=== PATIENT | female | born 1935 | race Caucasian/White ===

== ENCOUNTER 2017-03-06 15:46 | Inpatient (IN) | payer MEDICARE, OTHER ==
--- NOTE | 2017-03-06 16:24 | ER Document Report ---
ED Fever - General Chief Complaint: Fever Stated Complaint: WEAKNESS,FEVER Time Seen by Provider: 03/06/17 16:24 Mode of Arrival: Stretcher Information source: Patient TRAVEL OUTSIDE OF THE [place] IN LAST 30 DAYS: No - HPI Patient complains to provider of: Fever, lower extremity redness Onset: Yesterday Onset/Duration: Gradual Quality of pain: Achy Severity: Mild Pain Level: 1 Associated symptoms: Body/muscle aches, Fever, Nausea, Vomiting Similar symptoms previously: No Recently seen / treated by doctor: No Notes: Patient is an 81-year-old female who presents to the emergency room complaining of fever that started yesterday evening, she also had 3 episodes of vomiting throughout the night, she has pain and swelling with oozing of the skin to her bilateral lower extremities, she does report that her cat scratched her recently , she denies any cough, cold or congestion, no dysuria or hematuria, her daughter was sick with vomiting approximately 2 weeks ago, she denies any injury or pain at time of evaluation - Related Data Allergies/Adverse Reactions: niacin [Niacin] Allergy (Verified 05/27/13 23:09) rash Penicillins Allergy (Verified 05/27/13 23:09) rash Home Medications: Current Home Medications Hum Insulin NPH/Reg Insulin Hm [Novolin 70-30 100 Unit/ml Vial] 15 unit SUBCUT BID 03/06/17 [History] Omeprazole 20 mg PO DAILY 03/06/17 [History] Past Medical History - General Information source: Patient - Social History Smoking Status: Unknown if Ever Smoked Family History: CAD, CVA, DM, Hypertension, Malignancy - Past Medical History Cardiac Medical History: Reports: Hx Atrial Fibrillation, Hx Congestive Heart Failure - chronic diastolic, Hx Hypercholesterolemia, Hx Hypertension Pulmonary Medical History: Reports: Hx COPD Endocrine Medical History: Reports: Hx Diabetes Mellitus Type 2 GI Medical History: Reports: Hx Gastroesophageal Reflux Disease Musculoskeltal Medical History: Reports Hx Musculoskeletal Trauma - 2012 fracture L humerus Psychiatric Medical History: Reports: Hx Anxiety Traumatic Medical History: Reports: Hx Fractures Past Surgical History: Reports: Hx Breast Surgery - Immunizations Immunizations up to date: Yes Hx Diphtheria, Pertussis, Tetanus Vaccination: No Hx Pneumococcal Vaccination: 05/29/13 Review of Systems - Review of Systems Constitutional: Chills, Fever EENT: No symptoms reported Cardiovascular: No symptoms reported Respiratory: No symptoms reported Gastrointestinal: See HPI Genitourinary: No symptoms reported Female Genitourinary: No symptoms reported Musculoskeletal: No symptoms reported Skin: See HPI Hematologic/Lymphatic: No symptoms reported Neurological/Psychological: No symptoms reported -: Yes All other systems reviewed and negative Physical Exam - Vital signs Vitals: Temp Pulse Resp Pulse Ox 99.7 F 95 33 H 92 03/06/17 16:16 03/06/17 16:16 03/06/17 16:16 03/06/17 16:16 Interpretation: Hypotensive, Tachycardic, Febrile - General General appearance: Appears well, Alert - HEENT Head: Normocephalic, Atraumatic Eyes: Normal Pupils: PERRL - Respiratory Respiratory status: No respiratory distress Chest status: Nontender Breath sounds: Normal Chest palpation: Normal - Cardiovascular Rhythm: Regular Heart sounds: Normal auscultation Murmur: No - Abdominal Inspection: Normal Distension: Distended Bowel sounds: Normal Tenderness: Nontender Organomegaly: No organomegaly - Back Back: Normal, Nontender - Extremities General upper extremity: Normal inspection, Nontender, Normal color, Normal ROM , Normal temperature General lower extremity: Normal ROM, Normal temperature. No: Flower's sign Notes: Bilateral lower extremities with erythema, mild swelling, small amount of oozing serous fluid - Neurological Neuro grossly intact: Yes Cognition: Normal Orientation: AAOx4 Patricia Coma Scale Eye Opening: Spontaneous [place] Coma Scale Verbal: Oriented [place] Coma Scale Motor: Obeys Commands [place] Coma Scale Total: 15 Speech: Normal Motor strength normal: LUE, RUE, LLE, RLE Sensory: Normal - Psychological Associated symptoms: Normal affect, Normal mood - Skin Skin Temperature: Warm Skin Moisture: Dry Skin Color: Normal Course - Re-evaluation Re-evalutation: 03/06/17 20:55 Patient with marked leukocytosis, also slightly hypotensive and tachycardic with fever on arrival, therefore she meets SIRS criteria, and was discussed with Dr. Giron who agrees to admit for further evaluation and treatment - Vital Signs Vital signs: Temp Pulse Resp BP Pulse Ox 98.2 F 95 24 H 113/69 95 03/06/17 20:38 03/06/17 16:16 03/06/17 20:01 03/06/17 20:01 03/06/17 20:01 - Laboratory Result Diagrams: 03/06/17 16:55 03/06/17 16:55 Laboratory results interpreted by me: 03/06/17 03/06/17 03/06/17 16:32 16:55 16:55 WBC 23.0 H RDW 16.2 H Seg Neuts % (Manual) 85 H Band Neutrophils % 8 H Lymphocytes % (Manual) 2 L Abs Neuts (Manual) 21.4 H PT 20.4 H VBG pH Sodium Potassium BUN Est GFR (Non-Af Amer) Glucose POC Glucose 149 H Calcium Direct Bilirubin Albumin Urine Blood Ur Leukocyte Esterase 03/06/17 03/06/17 03/06/17 16:55 16:55 17:10 WBC RDW Seg Neuts % (Manual) Band Neutrophils % Lymphocytes % (Manual) Abs Neuts (Manual) PT VBG pH 7.45 H Sodium 136.5 L Potassium 3.4 L BUN 21 H Est GFR (Non-Af Amer) 51 L Glucose 172 H POC Glucose Calcium 8.2 L Direct Bilirubin 0.6 H Albumin 3.1 L Urine Blood SMALL H Ur Leukocyte Esterase SMALL H - Diagnostic Test Radiology reviewed: Image reviewed, Reports reviewed - EKG Interpretation by Me Rhythm: A.Fib When compared to previous EKG there are: No significant change - Transfer of Care Care transferred to following provider: Dr Giron Critical Care Note - Critical Care Note Total time excluding time spent on procedures (mins): 30 Comments: Patient with tachycardia, fever, hypotensive on arrival, meets SIRS criteria, requiring IV antibiotics and admission Discharge - Discharge Clinical Impression: Bilateral lower leg cellulitis, Systemic inflammatory response syndrome Condition: Fair Disposition: ADMITTED INPATIENT Admitting Provider: [facility] Admitted: Telemetry
[2017-03-06 17:04] LABS: VENOUS BLOOD BASE EXCESS 1.2 mmol/L; VENOUS BLOOD PCO2 36.9 mmHg (35-63); VENOUS BLOOD PH 7.45 (7.30-7.42)
[2017-03-06] MEDS ORDERED: NORMAL SALINE 1000 ML 500 ML IV PRN (17:04)
[2017-03-06 17:05] LABS: HEMATOCRIT 42.8 % (36.0-47.0); HEMOGLOBIN 13.8 g/dL (12.0-15.5); HGB HCT DIFFERENCE -1.4; MEAN CORPUSCULAR HEMOGLOBIN 27.3 pg (27.0-33.4); MEAN CORPUSCULAR HGB CONC 32.2 g/dL (32.0-36.0); MEAN CORPUSCULAR VOLUME 85 fl (80-97); RED BLOOD COUNT 5.04 10^6/uL (3.72-5.28); RED CELL DISTRIBUTION WIDTH 16.2 % (11.5-14.0)
[2017-03-06 17:12] LABS: PROTHROMBIN TIME 20.4 SEC (11.4-15.4)
[2017-03-06 17:25] LABS: ALANINE AMINOTRANSFERASE 37 U/L (9-52); ALBUMIN 3.1 g/dL (3.5-5.0); ALKALINE PHOSPHATASE 105 U/L (38-126); ANION GAP 15 (5-19); ASPARTATE AMINO TRANSFERASE 33 U/L (14-36); BILIRUBIN,DIRECT 0.6 mg/dL (0.0-0.4); BILIRUBIN,TOTAL 1.2 mg/dL (0.2-1.3); BLOOD UREA NITROGEN 21 mg/dL (7-20); CALCIUM 8.2 mg/dL (8.4-10.2); CARBON DIOXIDE 23 mmol/L (22-30); CHLORIDE 99 mmol/L (98-107); CREATININE RESULT 1.03 mg/dL (0.52-1.25); GLUCOSE 172 mg/dL (75-110); POTASSIUM 3.4 mmol/L (3.6-5.0); SODIUM 136.5 mmol/L (137-145); TOTAL PROTEIN 6.4 g/dL (6.3-8.2)
[2017-03-06 17:53] LABS: BAND NEUTROPHILS % (MANUAL) 8 % (3-5); BASOPHILS % (MANUAL) 0 % (0-2); EOSINOPHILS % (MANUAL) 0 % (0-6); LYMPHOCYTES % (MANUAL) 2 % (13-45); TOTAL CELLS COUNTED 100
[2017-03-06 17:54] LABS: ANISOCYTOSIS 1+; POIKILOCYTOSIS SLIGHT; TOXIC GRANULATION SLIGHT
[2017-03-06 19:05] LABS: APPEARANCE,URINE SLIGHTLY-CLOUDY; BILIRUBIN,URINE NEGATIVE (NEGATIVE); GLUCOSE, URINE NEGATIVE (NEGATIVE); KETONES,URINE NEGATIVE (NEGATIVE); LEUKOCYTE ESTERASE,URINE SMALL (NEGATIVE); NITRITE,URINE NEGATIVE (NEGATIVE); PROTEIN,URINE NEGATIVE (NEGATIVE); URINE SPECIFIC GRAVITY 1.018; UROBILINOGEN,URINE NEGATIVE mg/dL (<2.0)
--- NOTE | 2017-03-06 19:10 | RADIOLOGY REPORT (SQ) ---
EXAM DESCRIPTION: CHEST PA/LAT COMPLETED DATE/TIME: 03/06/2017 6:52 pm REASON FOR STUDY: cough COMPARISON: None. 04/02/2015 NUMBER OF VIEWS: Two view. TECHNIQUE: Frontal and lateral radiographic views of the chest acquired. LIMITATIONS: None. FINDINGS: LUNGS AND PLEURA: No opacities, masses or pneumothorax. No pleural effusion. Attenuated bl ood vessels and flattened talha-diaphragms. MEDIASTINUM AND HILAR STRUCTURES: No masses. No contour abnormalities. HEART AND VASCULAR STRUCTURES: Stable mild cardiomegaly. Central vasculature appears normal. BONES: No acute findings. HARDWARE: None in the chest. OTHER: No other significant finding. IMPRESSION: COPD. NO ACUTE RADIOGRAPHIC FINDING IN THE CHEST. TECHNICAL DOCUMENTATION: JOB ID: [id number] [facility]- All Rights Reserved
[2017-03-06] MEDS ORDERED: AZITHROMYCIN INJ 500 MG VIAL IV ONE (19:29)
[2017-03-06] MEDS ORDERED: VANCOMYCIN HCL INJ 1000 MG VIAL IV ONE (19:34)
[2017-03-06] MEDS ORDERED: FUROSEMIDE 40 MG TABLET PO PRN (19:54)
[2017-03-06] MEDS ORDERED: VANCOMYCIN HCL 0 MG in DEXTROSE 5%-WATER 250 ML IV NR (20:00)
[2017-03-06] MEDS ORDERED: METOPROLOL SUCCINATE 50 MG TAB.SR.24H PO ONE (20:30)
[2017-03-06] MEDS ORDERED: FLUTICASONE/SALMETEROL DISKUS 250-50 MCG/DOSE IH ONE (21:44)
[2017-03-06] MEDS: DABIGATRAN ETEXILATE 150 MG CAPSULE PO SCH (23:23)
[2017-03-06] MEDS: FLUTICASONE/SALMETEROL DISKUS 250-50 MCG/DOSE IH SCH (23:23)
[2017-03-06] MEDS: ACETAMINOPHEN 325 MG TABLET PO PRN (23:23)
[2017-03-06] MEDS: ONDANSETRON HCL INJ/PF 4 MG/2 ML SDV IV PRN (23:23)
[2017-03-07] MEDS: ACETAMINOPHEN 325 MG TABLET PO PRN ×4 (05:29→21:03)
--- NOTE | 2017-03-07 06:24 | PDOC H&P ---
History of Present Illness Admission Date/PCP: 03/06/17 19:48 MAGDALENA MCKEON MD Patient complains of: History of Present Illness: ZENAIDA MALHOTRA is a 81 year old female with a 2w history of cat scratches and bilateral leg pain, redness, swelling. 2d vomiting & fever 104. Past Medical History Cardiac Medical History: Reports: Atrial Fibrillation, Congestive Heart Failure - chronic diastolic, Hyperlipidema, Hypertension, Other - mr pulmonary hypertension Pulmonary Medical History: Reports: Chronic Obstructive Pulmonary Disease (COPD) Endocrine Medical History: Reports: Diabetes Mellitus Type 2 Renal/ Medical History: Reports: None Malignancy Medical History: Reports: None GI Medical History: Reports: Gastroesophageal Reflux Disease Musculoskeltal Medical History: Reports: Arthritis Skin Medical History: Reports: Psoriasis Psychiatric Medical History: Reports: Depression Traumatic Medical History: Reports: Other - fracture L humerus Hematology: Reports: Anemia - iron & b12 Infectious Medical History: Reports: None Past Surgical History Past Surgical History: Reports: Other - cataracts & L breast biopsy & cryo Social History Information Source: Dr. Greenberg Lives with: Family Smoking Status: Former Smoker Last Time Smoked: 1997 Frequency of Alcohol Use: None Hx Recreational Drug Use: No Hx Prescription Drug Abuse: No - Advance Directive Resuscitation Status: Full Code Family History Family History: CAD, CVA, DM, Hypertension, Malignancy Parental Family History Reviewed: Yes Children Family History Reviewed: Yes Sibling(s) Family History Reviewed.: Yes Medication/Allergy Home Medications: Atorvastatin Calcium 40 mg PO DAILY 04/03/15 Dabigatran Etexilate Mesylate [Pradaxa] 150 mg PO BID 04/03/15 Diltiazem HCl [Cartia Xt] 240 mg PO DAILY 04/03/15 Fluticasone/Salmeterol [Advair 250-50 Diskus 14 Dose/Diskus] 1 inh IH Q12H 04/03 Furosemide [Lasix 40 mg Tablet] 40 mg PO BID PRN 04/03/15 Tiotropium [place] [Spiriva Handihaler 18 mcg/dose (30 Dose)] 1 cap IH DAILY 10/18 Cyanocobalamin (Vitamin B-12) [Vitamin B-12 1000 mcg Tablet] 1,000 mcg PO DAILY #100 tablet 04/08/15 Ferrous Sulfate [Feosol 325 mg Tablet] 325 mg PO DAILY #100 tablet 04/08/15 Isosorbide Mononitrate [Imdur 30 mg Tablet.er] 30 mg PO DAILY #30 tab.er.24h 03/18 Metoprolol Succinate 50 mg PO DAILY #30 tab.er.24h 04/08/15 Hum Insulin NPH/Reg Insulin Hm [Novolin 70-30 100 Unit/ml Vial] 12 unit SUBCUT BID 03/06/17 Omeprazole 20 mg PO DAILY 03/06/17 Omeprazole 20 mg PO 03/07/17 Allergies/Adverse Reactions: niacin [Niacin] Allergy (Verified 05/27/13 23:09) rash Penicillins Allergy (Verified 05/27/13 23:09) rash Review of Systems Constitutional: PRESENT: fever(s), headache(s) Nose, Mouth, and Throat: ABSENT: sore throat Cardiovascular: ABSENT: chest pain, dyspnea on exertion, orthropnea Respiratory: PRESENT: cough - baseline. ABSENT: dyspnea, sputum Gastrointestinal: PRESENT: vomiting. ABSENT: abdominal pain, constipation, diarrhea, hematochezia, melena Genitourinary: ABSENT: dysuria, hematuria Integumentary: PRESENT: erythema Physical Exam Vital Signs: Temp Pulse Resp BP Pulse Ox 99.3 F 96 16 116/59 L 96 03/07/17 03:32 03/07/17 03:32 03/07/17 03:32 03/07/17 03:32 03/07/17 03:32 Intake & Output 03/05/17 03/06/17 03/07/17 07:59 07:59 07:59 Intake Total 240 Output Total 1000 Balance -760 Weight 213 lb 6.519 oz General appearance: PRESENT: no acute distress Mouth exam: PRESENT: dry mucosa Neck exam: ABSENT: lymphadenopathy, tenderness, thyromegaly, tracheal deviation Respiratory exam: PRESENT: clear to auscultation earnest Cardiovascular exam: PRESENT: irregular rhythm. ABSENT: diastolic murmur, systolic murmur GI/Abdominal exam: ABSENT: mass, organolmegaly, tenderness Extremities exam: PRESENT: pedal edema - trace R Neurological exam: PRESENT: oriented to situation Psychiatric exam: PRESENT: appropriate affect Skin exam: PRESENT: erythema - legs. L from foot to just below knee all around. Less on R. Tender. Ulcers<5mm where cat scratched 2w ago. Results Laboratory Results: Abnormal - 24 hr 03/06/17 03/06/17 03/06/17 16:32 16:55 16:55 WBC 23.0 H RDW 16.2 H Seg Neuts % (Manual) 85 H Band Neutrophils % 8 H Lymphocytes % (Manual) 2 L Abs Neuts (Manual) 21.4 H PT 20.4 H VBG pH Sodium Potassium BUN Est GFR (Non-Af Amer) Glucose POC Glucose 149 H Calcium Direct Bilirubin Albumin Urine Blood Ur Leukocyte Esterase 03/06/17 03/06/17 03/06/17 16:55 16:55 17:10 WBC RDW Seg Neuts % (Manual) Band Neutrophils % Lymphocytes % (Manual) Abs Neuts (Manual) PT VBG pH 7.45 H Sodium 136.5 L Potassium 3.4 L BUN 21 H Est GFR (Non-Af Amer) 51 L Glucose 172 H POC Glucose Calcium 8.2 L Direct Bilirubin 0.6 H Albumin 3.1 L Urine Blood SMALL H Ur Leukocyte Esterase SMALL H Impressions: Chest X-Ray 03/06/17 18:01 IMPRESSION: COPD. NO ACUTE RADIOGRAPHIC FINDING IN THE CHEST. Assessment & Plan - Diagnosis (1) Bilateral lower leg cellulitis Is this a current diagnosis for this admission?: YesPlan: vanc & azithromycin for ?bartonella. Consider IM ceftri if cant maintain IV. (2) Type 2 diabetes mellitus without complications Qualifiers: Diabetes mellitus fdc insulin use: with fdc use Qualified Code(s): E11.9 - Type 2 diabetes mellitus without complications; Z79.4 - snf (current) use of insulin Is this a current diagnosis for this admission?: YesPlan: continue novolin - Time Time Spent: 30 to 50 Minutes Medications reviewed and adjusted accordingly: Yes Anticipated discharge: Home Within: Other - Inpatient Certification Medical Necessity: Significant Comorbidiites Make Outpatient Treatment Too Risky , Need Close Monitoring Due to Risk of Patient Decompensation, Need For IV Fluids, Need For Continuous Telemetry Monitoring, Need for IV Antibiotics, Risk of Complication if Not Cared For in Hospital, Risk of Diagnosis Which Will Require Inpatient Eval/Care/Monitoring Post 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
[2017-03-07] MEDS ORDERED: GLUCAGON,HUMAN RECOMB 1 MG INJ IM PRN (06:25)
[2017-03-07] MEDS ORDERED: DEXTROSE 50%-WATER 25 GM/50 ML DISP.SYRIN IV PRN ×2 (06:25)
[2017-03-07] MEDS ORDERED: DEXTROSE 40% GEL 15 GM TUBE PO PRN ×2 (06:25)
[2017-03-07] MEDS: METOPROLOL SUCCINATE 50 MG TAB.SR.24H PO SCH (09:15)
[2017-03-07] MEDS: HUM INSULIN NPH/REG INSULIN HM 100 UNIT/1 ML 3 ML SUBCUT SCH ×2 (09:16→16:31)
[2017-03-07] MEDS: ATORVASTATIN CALCIUM 40 MG TABLET PO SCH (09:17)
[2017-03-07] MEDS: CYANOCOBALAMIN (VITAMIN B-12) 1,000 MCG TABLET PO SCH (09:18)
[2017-03-07] MEDS: AZITHROMYCIN 250 MG TABLET PO SCH (09:18)
[2017-03-07] MEDS: ISOSORBIDE MONONITRATE 30 MG TAB.ER.24H PO SCH (09:18)
[2017-03-07] MEDS: DILTIAZEM HCL 240 MG CAPSULE.CR PO SCH (09:18)
--- NOTE | 2017-03-07 09:25 | EKG REPORT ---
SEVERITY:- ABNORMAL ECG - ATRIAL FIBRILLATION, V-RATE 79-124 REPOL ABNRM SUGGESTS ISCHEMIA, DIFFUSE LEADS BORDERLINE PROLONGED QT INTERVAL LVH : Confirmed by: Chilo Quinones 07-Mar-2017 09:25:17
[2017-03-07] MEDS: FLUTICASONE/SALMETEROL DISKUS 250-50 MCG/DOSE IH SCH ×2 (09:28→21:03)
[2017-03-07] MEDS: 1/2 NORMAL SALINE 1,000 ML IV PRN (09:31)
[2017-03-07] MEDS ORDERED: GLIMEPIRIDE 1 MG TABLET PO SCH (10:00)
[2017-03-07] MEDS: TIOTROPIUM BROMIDE DPI 5 CAP/KIT (18 MCG/CAP) IH SCH (11:08)
[2017-03-07] MEDS: DABIGATRAN ETEXILATE 150 MG CAPSULE PO SCH ×2 (11:09→21:01)
[2017-03-07] MEDS: SIMETHICONE 80 MG TAB.CHEW PO PRN ×2 (16:31→21:59)
[2017-03-07] MEDS: VANCOMYCIN HCL 1,500 MG in DEXTROSE 5%-WATER 250 ML IV SCH (17:21)
[2017-03-07] MEDS: ONDANSETRON HCL INJ/PF 4 MG/2 ML SDV IV PRN (21:59)
[2017-03-07] MEDS: IPRATROPIUM/ALBUTEROL 0.5-2.5 MG/3 ML AMPUL NEB SCH (22:12)
[2017-03-08] MEDS: IPRATROPIUM/ALBUTEROL 0.5-2.5 MG/3 ML AMPUL NEB SCH ×6 (04:19→23:44)
[2017-03-08] MEDS: SIMETHICONE 80 MG TAB.CHEW PO PRN (05:31)
[2017-03-08] MEDS: ACETAMINOPHEN 325 MG TABLET PO PRN ×2 (06:00→22:40)
[2017-03-08] MEDS: 1/2 NORMAL SALINE 1,000 ML IV PRN ×2 (06:01→18:52)
--- NOTE | 2017-03-08 06:51 | PDOC PROGRESS REPORT ---
Subjective Progress Note for:: 03/08/17 Subjective:: legs slightly better. Needed neb yesterday. Burping. Mylicon. 3d no stool. Physical Exam Vital Signs: Temp Pulse Resp BP Pulse Ox 99.3 F 129 H 20 141/68 H 93 03/08/17 04:00 03/08/17 04:19 03/08/17 04:19 03/08/17 04:00 03/08/17 04:19 Intake & Output 03/06/17 03/07/17 03/08/17 07:59 07:59 07:59 Intake Total 877 1025 Output Total 2200 Balance -1323 1025 Weight 213 lb 6.519 oz 226 lb 13.69 oz General appearance: PRESENT: no acute distress Respiratory exam: PRESENT: clear to auscultation earnest Cardiovascular exam: PRESENT: irregular rhythm, tachycardia. ABSENT: diastolic murmur, systolic murmur GI/Abdominal exam: ABSENT: mass, organolmegaly, tenderness Extremities exam: ABSENT: pedal edema Skin exam: PRESENT: rash - R legs less so. L leg more demarcated below knee. L rough rice tender. Results Laboratory Results: Abnormal - 24 hr 03/07/17 03/07/17 03/08/17 07:43 21:54 06:05 POC Glucose 135 H 160 H 156 H Impressions: Chest X-Ray 03/06/17 18:01 IMPRESSION: COPD. NO ACUTE RADIOGRAPHIC FINDING IN THE CHEST. Assessment & Plan - Diagnosis (1) Bilateral lower leg cellulitis Is this a current diagnosis for this admission?: YesPlan: Blood cultures negative. Continue vanc & azith (2) Type 2 diabetes mellitus without complications Qualifiers: Diabetes mellitus roasterman insulin use: with care home use Qualified Code(s): E11.9 - Type 2 diabetes mellitus without complications Is this a current diagnosis for this admission?: Yes (3) Constipation Qualifiers: Constipation type: slow transit constipation Qualified Code(s): K59.01 - Slow transit constipation Is this a current diagnosis for this admission?: YesPlan: shannon
[2017-03-08] MEDS: LUBIPROSTONE 24 MCG CAPSULE PO SCH ×2 (10:14→18:52)
[2017-03-08] MEDS: CYANOCOBALAMIN (VITAMIN B-12) 1,000 MCG TABLET PO SCH (10:15)
[2017-03-08] MEDS: AZITHROMYCIN 250 MG TABLET PO SCH (10:15)
[2017-03-08] MEDS: DILTIAZEM HCL 240 MG CAPSULE.CR PO SCH (10:15)
[2017-03-08] MEDS: ATORVASTATIN CALCIUM 40 MG TABLET PO SCH (10:15)
[2017-03-08] MEDS: ISOSORBIDE MONONITRATE 30 MG TAB.ER.24H PO SCH (10:15)
[2017-03-08] MEDS: FLUTICASONE/SALMETEROL DISKUS 250-50 MCG/DOSE IH SCH ×2 (10:16→22:41)
[2017-03-08] MEDS: METOPROLOL SUCCINATE 50 MG TAB.SR.24H PO SCH (10:16)
[2017-03-08] MEDS: TIOTROPIUM BROMIDE DPI 5 CAP/KIT (18 MCG/CAP) IH SCH (10:17)
[2017-03-08] MEDS: DABIGATRAN ETEXILATE 150 MG CAPSULE PO SCH ×2 (10:18→22:40)
[2017-03-08] MEDS: HUM INSULIN NPH/REG INSULIN HM 100 UNIT/1 ML 3 ML SUBCUT SCH ×2 (10:22→16:15)
[2017-03-08] MEDS: ONDANSETRON HCL INJ/PF 4 MG/2 ML SDV IV PRN (14:00)
[2017-03-08] MEDS ORDERED: LANSOPRAZOLE 15 MG TAB.RAP.DR PO ONE (15:30)
[2017-03-08] MEDS: VANCOMYCIN HCL 1,500 MG in DEXTROSE 5%-WATER 250 ML IV SCH (18:52)
[2017-03-09] MEDS: IPRATROPIUM/ALBUTEROL 0.5-2.5 MG/3 ML AMPUL NEB SCH ×3 (04:26→13:24)
--- NOTE | 2017-03-09 06:44 | PDOC PROGRESS REPORT ---
Subjective Progress Note for:: 03/09/17 Subjective:: Legs improving. Lorrie worked. Needed ppi again for heartburn. Physical Exam Vital Signs: Temp Pulse Resp BP Pulse Ox 97.5 F 105 H 18 128/75 H 95 03/09/17 01:25 03/09/17 04:25 03/09/17 04:25 03/09/17 01:25 03/09/17 01:25 Intake & Output 03/07/17 03/08/17 03/09/17 07:59 07:59 07:59 Intake Total 877 1025 4225 Output Total 2200 Balance -1323 1025 4225 Weight 213 lb 6.519 oz 226 lb 13.69 oz General appearance: PRESENT: no acute distress Respiratory exam: PRESENT: wheezes - minimal Cardiovascular exam: PRESENT: irregular rhythm, tachycardia. ABSENT: diastolic murmur, systolic murmur GI/Abdominal exam: ABSENT: mass, organolmegaly, tenderness Neurological exam: PRESENT: oriented to situation Psychiatric exam: PRESENT: appropriate affect Skin exam: PRESENT: erythema - less intense L leg. Nontnd. Gone on R Results Laboratory Results: Abnormal - 24 hr 03/08/17 03/08/17 03/09/17 15:03 21:51 06:22 POC Glucose 162 H 142 H 127 H Impressions: Chest X-Ray 03/06/17 18:01 IMPRESSION: COPD. NO ACUTE RADIOGRAPHIC FINDING IN THE CHEST. Assessment & Plan - Diagnosis (1) Bilateral lower leg cellulitis Is this a current diagnosis for this admission?: YesPlan: blood cultures & urine culture negative. Continue vanc. (2) Type 2 diabetes mellitus without complications Qualifiers: Diabetes mellitus ferry terminal agent insulin use: with ferry terminal agent use Qualified Code(s): E11.9 - Type 2 diabetes mellitus without complications Is this a current diagnosis for this admission?: Yes (3) Constipation Qualifiers: Constipation type: slow transit constipation Qualified Code(s): K59.01 - Slow transit constipation Is this a current diagnosis for this admission?: Yes
[2017-03-09] MEDS: HUM INSULIN NPH/REG INSULIN HM 100 UNIT/1 ML 3 ML SUBCUT SCH ×2 (08:15→16:59)
[2017-03-09] MEDS: ISOSORBIDE MONONITRATE 30 MG TAB.ER.24H PO SCH (11:06)
[2017-03-09] MEDS: FUROSEMIDE 40 MG TABLET PO SCH ×2 (11:06→19:19)
[2017-03-09] MEDS: DILTIAZEM HCL 240 MG CAPSULE.CR PO SCH (11:06)
[2017-03-09] MEDS: METOPROLOL SUCCINATE 50 MG TAB.SR.24H PO SCH (11:06)
[2017-03-09] MEDS: POTASSIUM CHLORIDE 10 MEQ TABLET.SA PO SCH ×2 (11:07→21:42)
[2017-03-09] MEDS: DABIGATRAN ETEXILATE 150 MG CAPSULE PO SCH ×2 (11:07→21:42)
[2017-03-09] MEDS: LUBIPROSTONE 24 MCG CAPSULE PO SCH ×2 (11:07→19:19)
[2017-03-09] MEDS: LANSOPRAZOLE 15 MG TAB.RAP.DR PO SCH (11:07)
[2017-03-09] MEDS: CYANOCOBALAMIN (VITAMIN B-12) 1,000 MCG TABLET PO SCH (11:08)
[2017-03-09] MEDS: ATORVASTATIN CALCIUM 40 MG TABLET PO SCH (11:08)
[2017-03-09] MEDS: FLUTICASONE/SALMETEROL DISKUS 250-50 MCG/DOSE IH SCH ×2 (11:08→21:42)
[2017-03-09] MEDS: TIOTROPIUM BROMIDE DPI 5 CAP/KIT (18 MCG/CAP) IH SCH (11:09)
[2017-03-09] MEDS: BENZONATATE 100 MG CAPSULE PO PRN (14:58)
[2017-03-09] MEDS ORDERED: DILTIAZEM HCL 120 MG CAP.SR.24H PO ONE (15:00)
[2017-03-09 18:19] LABS: CREATININE RESULT 0.73 mg/dL (0.52-1.25)
[2017-03-09] MEDS: VANCOMYCIN HCL 1,500 MG in DEXTROSE 5%-WATER 250 ML IV SCH (19:19)
[2017-03-09] MEDS: 1/2 NORMAL SALINE 1,000 ML IV PRN (19:20)
[2017-03-09] MEDS ORDERED: IPRATROPIUM/ALBUTEROL 0.5-2.5 MG/3 ML AMPUL NEB PRN (20:00)
[2017-03-09] MEDS ORDERED: IPRATROPIUM/ALBUTEROL 0.5-2.5 MG/3 ML AMPUL NEB SCH (20:00)
[2017-03-09] MEDS: CEFTRIAXONE INJ 1000 MG VIAL IM SCH (21:41)
[2017-03-09] MEDS: LIDOCAINE HCL 1% INJ (FOR 1 GM VIAL) INJ SCH (21:42)
[2017-03-09] MEDS ORDERED: CEFTRIAXONE INJ 1000 MG VIAL IM SCH ×2 (22:00)
--- NOTE | 2017-03-09 23:01 | RADIOLOGY REPORT (SQ) ---
EXAM DESCRIPTION: CHEST SINGLE VIEW COMPLETED DATE/TIME: 03/09/2017 10:52 pm REASON FOR STUDY: Pneumonia COMPARISON: 03/06/2017 EXAM PARAMETERS: NUMBER OF VIEWS: One view. TECHNIQUE: Single frontal radiographic view of the chest acquired. RADIATION DOSE: NA LIMITATIONS: None. FINDINGS: LUNGS AND PLEURA: Basilar markings are slightly more prominent than noted on prior study. There is curvilinear atelectasis in the left base. MEDIASTINUM AND HILAR STRUCTURES: No masses. Contour normal. HEART AND VASCULAR STRUCTURES: Heart is enlarged. Interstitial markings are prominent. BONES: No acute findings. HARDWARE: None in the chest. OTHER: No other significant finding. IMPRESSION: Cardiomegaly. Mild vascular congestion. TECHNICAL DOCUMENTATION: JOB ID: [id number]
[2017-03-10] MEDS: BENZONATATE 100 MG CAPSULE PO PRN ×2 (00:27→13:19)
[2017-03-10] MEDS ORDERED: VANCOMYCIN HCL 1,000 MG in DEXTROSE 5%-WATER 250 ML IV SCH (06:00)
[2017-03-10] MEDS ORDERED: INSULIN REG, HUMAN 100 UNIT/ML 3 ML VIAL (PYX) SUBCUT PRN (06:53)
--- NOTE | 2017-03-10 07:10 | PDOC PROGRESS REPORT ---
Subjective Progress Note for:: 03/10/17 Subjective:: wheeze. Food nauseates. No 70*30insulin in 3d for normal bs. Lost IV. Vanc8. Now on ceftri IM. Physical Exam Vital Signs: Temp Pulse Resp BP Pulse Ox 98.1 F 119 H 16 117/68 93 03/10/17 04:09 03/10/17 04:09 03/10/17 04:09 03/10/17 04:09 03/10/17 04:09 Intake & Output 03/08/17 03/09/17 03/10/17 07:59 07:59 07:59 Intake Total 1025 4225 360 Balance 1025 4225 360 Weight 226 lb 13.69 oz 226 lb 13.69 oz 226 lb 13.69 oz General appearance: PRESENT: no acute distress Respiratory exam: PRESENT: wheezes - moderate Cardiovascular exam: PRESENT: irregular rhythm. ABSENT: diastolic murmur, systolic murmur, tachycardia GI/Abdominal exam: ABSENT: mass, organolmegaly, tenderness Extremities exam: PRESENT: pedal edema - L1+ Neurological exam: PRESENT: oriented to situation Psychiatric exam: PRESENT: appropriate affect Skin exam: PRESENT: erythema - L leg still red & tender Results Laboratory Results: 03/09/17 17:45 03/09/17 17:45 Creatinine 0.73 Est GFR ( Amer) > 60 Est GFR (Non-Af Amer) > 60 Abnormal - 24 hr 03/09/17 03/09/17 03/09/17 11:04 16:57 21:40 POC Glucose 133 H 124 H 122 H 03/10/17 05:54 POC Glucose 114 H Impressions: Chest X-Ray 03/09/17 00:00 IMPRESSION: Cardiomegaly. Mild vascular congestion. Assessment & Plan - Diagnosis (1) Bilateral lower leg cellulitis Is this a current diagnosis for this admission?: YesPlan: try ceftri IM rather than central line. (2) Panlobular emphysema Is this a current diagnosis for this admission?: YesPlan: productive cough. Continue sprays & ceftri. No prednisone yet. (3) Chronic diastolic heart failure Is this a current diagnosis for this admission?: YesPlan: IVF may have congested vessels. Now off IVF. Continue furosemide 40bid (4) Chronic atrial fibrillation Is this a current diagnosis for this admission?: YesPlan: rate 150s until duoneb made prn & diltiazem increased to 360qd (5) Type 2 diabetes mellitus without complications Qualifiers: Diabetes mellitus ocean transportation intermediary insulin use: with ocean transportation intermediary use Qualified Code(s): E11.9 - Type 2 diabetes mellitus without complications Is this a current diagnosis for this admission?: YesPlan: sliding scale (6) Constipation Qualifiers: Constipation type: slow transit constipation Qualified Code(s): K59.01 - Slow transit constipation Is this a current diagnosis for this admission?: Yes
[2017-03-10] MEDS: TIOTROPIUM BROMIDE DPI 5 CAP/KIT (18 MCG/CAP) IH SCH (09:11)
[2017-03-10] MEDS: FLUTICASONE/SALMETEROL DISKUS 250-50 MCG/DOSE IH SCH ×2 (09:11→22:11)
[2017-03-10] MEDS: ISOSORBIDE MONONITRATE 30 MG TAB.ER.24H PO SCH (09:12)
[2017-03-10] MEDS: LUBIPROSTONE 24 MCG CAPSULE PO SCH ×2 (09:12→16:45)
[2017-03-10] MEDS: ATORVASTATIN CALCIUM 40 MG TABLET PO SCH (09:12)
[2017-03-10] MEDS: LANSOPRAZOLE 15 MG TAB.RAP.DR PO SCH (09:12)
[2017-03-10] MEDS: METOPROLOL SUCCINATE 50 MG TAB.SR.24H PO SCH (09:13)
[2017-03-10] MEDS: CYANOCOBALAMIN (VITAMIN B-12) 1,000 MCG TABLET PO SCH (09:13)
[2017-03-10] MEDS: DILTIAZEM HCL 180 MG CAPSULE.CR PO SCH (09:13)
[2017-03-10] MEDS: POTASSIUM CHLORIDE 10 MEQ TABLET.SA PO SCH ×2 (09:13→22:11)
[2017-03-10] MEDS: DABIGATRAN ETEXILATE 150 MG CAPSULE PO SCH ×2 (09:13→22:11)
[2017-03-10] MEDS ORDERED: LIDOCAINE HCL 1% INJ (FOR 1 GM VIAL) INJ SCH ×3 (10:00)
[2017-03-10] MEDS ORDERED: CEFTRIAXONE INJ 1000 MG VIAL IM SCH (10:00)
[2017-03-10] MEDS ORDERED: TRIAMCINOLONE ACETONIDE 0.1% CREAM 15 GM TOP ONE (10:15)
[2017-03-10] MEDS: FUROSEMIDE 40 MG TABLET PO SCH (16:45)
[2017-03-10] MEDS: LIDOCAINE HCL 1% INJ (FOR 1 GM VIAL) INJ SCH (22:11)
[2017-03-10] MEDS: CEFTRIAXONE INJ 1000 MG VIAL IM SCH (22:11)
--- NOTE | 2017-03-11 08:01 | PDOC PROGRESS REPORT ---
Subjective Progress Note for:: 03/11/17 Subjective:: L leg itch. Triamcinolone helped some. Wants benadryl. Physical Exam Vital Signs: Temp Pulse Resp BP Pulse Ox 97.9 F 108 H 17 132/79 H 95 03/11/17 04:27 03/11/17 07:00 03/11/17 04:27 03/11/17 04:27 03/11/17 04:27 Intake & Output 03/09/17 03/10/17 03/11/17 07:59 07:59 07:59 Intake Total 4225 360 825 Output Total 2 Balance 4225 360 823 Weight 226 lb 13.69 oz 226 lb 13.69 oz 227 lb 1.218 oz General appearance: PRESENT: no acute distress Respiratory exam: PRESENT: clear to auscultation earnest Cardiovascular exam: PRESENT: irregular rhythm. ABSENT: diastolic murmur, systolic murmur GI/Abdominal exam: ABSENT: mass, organolmegaly, soft Extremities exam: PRESENT: pedal edema - R trace. L 1+ Neurological exam: PRESENT: oriented to situation Psychiatric exam: PRESENT: appropriate affect Skin exam: PRESENT: erythema - somewhat less on L but char filter tank tender head. Cellulitis not yet overcome. Not ready for home. Continue IM ceftriaxone. Results Laboratory Results: 03/09/17 17:45 Impressions: Chest X-Ray 03/09/17 00:00 IMPRESSION: Cardiomegaly. Mild vascular congestion. Assessment & Plan - Diagnosis (1) Bilateral lower leg cellulitis Is this a current diagnosis for this admission?: Yes (2) Panlobular emphysema Is this a current diagnosis for this admission?: Yes (3) Chronic diastolic heart failure Is this a current diagnosis for this admission?: Yes (4) Chronic atrial fibrillation Is this a current diagnosis for this admission?: Yes (5) Type 2 diabetes mellitus without complications Qualifiers: Diabetes mellitus intermediate teacher insulin use: with fdc use Qualified Code(s): E11.9 - Type 2 diabetes mellitus without complications Is this a current diagnosis for this admission?: Yes (6) Constipation Qualifiers: Constipation type: slow transit constipation Qualified Code(s): K59.01 - Slow transit constipation Is this a current diagnosis for this admission?: Yes
[2017-03-11] MEDS: FLUTICASONE/SALMETEROL DISKUS 250-50 MCG/DOSE IH SCH ×2 (09:48→22:03)
[2017-03-11] MEDS: DILTIAZEM HCL 180 MG CAPSULE.CR PO SCH (09:49)
[2017-03-11] MEDS: METOPROLOL SUCCINATE 50 MG TAB.SR.24H PO SCH (09:49)
[2017-03-11] MEDS: CYANOCOBALAMIN (VITAMIN B-12) 1,000 MCG TABLET PO SCH (09:50)
[2017-03-11] MEDS: ATORVASTATIN CALCIUM 40 MG TABLET PO SCH (09:50)
[2017-03-11] MEDS: POTASSIUM CHLORIDE 10 MEQ TABLET.SA PO SCH ×2 (09:50→22:03)
[2017-03-11] MEDS: ISOSORBIDE MONONITRATE 30 MG TAB.ER.24H PO SCH (09:50)
[2017-03-11] MEDS: FUROSEMIDE 40 MG TABLET PO SCH ×2 (09:50→18:20)
[2017-03-11] MEDS: LUBIPROSTONE 24 MCG CAPSULE PO SCH ×2 (09:50→18:20)
[2017-03-11] MEDS: TIOTROPIUM BROMIDE DPI 5 CAP/KIT (18 MCG/CAP) IH SCH (09:50)
[2017-03-11] MEDS: LANSOPRAZOLE 15 MG TAB.RAP.DR PO SCH (09:50)
[2017-03-11] MEDS: DABIGATRAN ETEXILATE 150 MG CAPSULE PO SCH ×2 (09:53→22:02)
[2017-03-11] MEDS: BENZONATATE 100 MG CAPSULE PO PRN ×2 (09:56→22:03)
[2017-03-11] MEDS: DIPHENHYDRAMINE HCL 25 MG CAPSULE PO PRN ×2 (09:56→22:03)
[2017-03-11] MEDS ORDERED: TRIAMCINOLONE ACETONIDE 0.1% CREAM 15 GM TOP SCH (10:00)
[2017-03-11] MEDS: ACETAMINOPHEN 325 MG TABLET PO PRN ×2 (12:39→22:03)
[2017-03-11] MEDS: LIDOCAINE HCL 1% INJ (FOR 1 GM VIAL) INJ SCH (22:00)
[2017-03-11] MEDS: CEFTRIAXONE INJ 1000 MG VIAL IM SCH (22:02)
--- NOTE | 2017-03-12 07:58 | PDOC DISCHARGE SUMMARY ---
General - Admit/Disc Date/PCP Admission Date/Primary Care Provider: 03/06/17 19:48 MAGDALENA MCKEON MD Discharge Date: 03/12/17 - Discharge Diagnosis (1) Bilateral lower leg cellulitis Is this a current diagnosis for this admission?: Yes (2) Panlobular emphysema Is this a current diagnosis for this admission?: Yes (3) Chronic diastolic heart failure Is this a current diagnosis for this admission?: Yes (4) Chronic atrial fibrillation Is this a current diagnosis for this admission?: Yes (5) Type 2 diabetes mellitus without complications Is this a current diagnosis for this admission?: Yes (6) Constipation Is this a current diagnosis for this admission?: Yes - Additional Information Resuscitation Status: Full Code Discharge Diet: Diabetic Discharge Activity: Activity As Tolerated Home Medications: Atorvastatin Calcium 40 mg PO DAILY 04/03/15 Dabigatran Etexilate Mesylate [Pradaxa] 150 mg PO Q12 04/03/15 Fluticasone/Salmeterol [Advair 250-50 Diskus 14 Dose/Diskus] 1 puff IH Q12 04/03 Furosemide [Lasix 40 mg Tablet] 40 mg PO BID 04/03/15 Tiotropium [place] [Spiriva Handihaler 18 mcg/dose (30 Dose)] 1 puff IH DAILY Cyanocobalamin (Vitamin B-12) [Vitamin B-12 1000 mcg Tablet] 1,000 mcg PO DAILY #100 tablet 04/08/15 Ferrous Sulfate [Feosol 325 mg Tablet] 325 mg PO DAILY #100 tablet 04/08/15 Isosorbide Mononitrate [Imdur 30 mg Tablet.er] 30 mg PO DAILY #30 tab.er.24h 03/18 Metoprolol Succinate 50 mg PO DAILY #30 tab.er.24h 04/08/15 Hum Insulin NPH/Reg Insulin Hm [Novolin 70-30 100 Unit/ml Vial] 15 unit SUBCUT BID 03/06/17 Omeprazole 20 mg PO DAILY 03/06/17 Albuterol Sulfate [Proair HFA Inhalation Aerosol 8.5 gm MDI] 2 puff IH QIDP PRN 03/07/17 Bisacodyl [Dulcolax 5 mg Tablet] 5 mg PO DAILYP PRN 03/07/17 Cefdinir [Omnicef 300 mg Capsule] 1 cap PO BID #6 capsule 03/12/17 Diltiazem HCl [Diltiazem 24Hr Cd] 360 mg PO DAILY #30 cap.er.24h 03/12/17 Triamcinolone Acetonide [Aristocort 0.1% Cream] 1 applic TOP DAILY #0 tube 03/12 History of Present Illness Patient complains of: pain swelling redness legs 2w after cat scratched History of Present Illness: ZENAIDA MALHOTRA is a 81 year old female with a 2w history of cat scratches and bilateral leg pain, redness, swelling. 2d vomiting & fever 104. Hospital Course Hospital Course: Had 5d days vanc, 3d azith, & 3d ceftri. Blood cultures negative. L leg no longer red. R leg no longer tender for first time today. Needed nebs for wheeze. Needed more diltiazem for fast afib. Needed amitiza for constipation. Physical Exam Vital Signs: Temp Pulse Resp BP Pulse Ox 97.9 F 92 16 120/53 L 95 03/12/17 03:40 03/12/17 03:40 03/12/17 03:40 03/12/17 03:40 03/12/17 03:40 Intake & Output 03/10/17 03/11/17 03/12/17 07:59 07:59 07:59 Intake Total 360 825 869 Output Total 2 1100 Balance 360 823 -231 Weight 226 lb 13.69 oz 227 lb 1.218 oz 224 lb 3.362 oz General appearance: PRESENT: no acute distress Respiratory exam: PRESENT: clear to auscultation earnest Cardiovascular exam: PRESENT: irregular rhythm. ABSENT: diastolic murmur, systolic murmur GI/Abdominal exam: ABSENT: mass, organolmegaly, tenderness Extremities exam: PRESENT: pedal edema - R 1+ Neurological exam: PRESENT: oriented to situation Psychiatric exam: PRESENT: appropriate affect Skin exam: PRESENT: erythema - fading on R leg Results Laboratory Results: 03/09/17 17:45 Labs- Last Values WBC 23.0 10^3/uL (4.0-10.5) H 03/06/17 16:55 RBC 5.04 10^6/uL (3.72-5.28) 03/06/17 16:55 Hgb 13.8 g/dL (12.0-15.5) 03/06/17 16:55 Hct 42.8 % (36.0-47.0) 03/06/17 16:55 MCV 85 fl (80-97) 03/06/17 16:55 MCH 27.3 pg (27.0-33.4) 03/06/17 16:55 MCHC 32.2 g/dL (32.0-36.0) 03/06/17 16:55 RDW 16.2 % (11.5-14.0) H 03/06/17 16:55 Plt Count 209 10^3/uL (150-450) 03/06/17 16:55 Total Counted 100 03/06/17 16:55 Seg Neutrophils % Not Reportable 03/06/17 16:55 Seg Neuts % (Manual) 85 % (42-78) H 03/06/17 16:55 Band Neutrophils % 8 % (3-5) H 03/06/17 16:55 Lymphocytes % Not Reportable 03/06/17 16:55 Lymphocytes % (Manual) 2 % (13-45) L 03/06/17 16:55 Monocytes % Not Reportable 03/06/17 16:55 Monocytes % (Manual) 5 % (3-13) 03/06/17 16:55 Eosinophils % Not Reportable 03/06/17 16:55 Eosinophils % (Manual) 0 % (0-6) 03/06/17 16:55 Basophils % Not Reportable 03/06/17 16:55 Basophils % (Manual) 0 % (0-2) 03/06/17 16:55 Absolute Neutrophils Not Reportable 03/06/17 16:55 Abs Neuts (Manual) 21.4 10^3/uL (1.7-8.2) H 03/06/17 16:55 Absolute Lymphocytes Not Reportable 03/06/17 16:55 Abs Lymphs (Manual) 0.5 10^3/uL (0.5-4.7) 03/06/17 16:55 Absolute Monocytes Not Reportable 03/06/17 16:55 Abs Monocytes (Manual) 1.2 10^3/uL (0.1-1.4) 03/06/17 16:55 Absolute Eosinophils Not Reportable 03/06/17 16:55 Absolute Eos (Manual) 0.0 10^3/uL (0.0-0.6) 03/06/17 16:55 Absolute Basophils Not Reportable 03/06/17 16:55 Abs Basophils (Manual) 0.0 10^3/uL (0.0-0.2) 03/06/17 16:55 Toxic Granulation SLIGHT 03/06/17 16:55 Platelet Comment ADEQUATE 03/06/17 16:55 Poikilocytosis SLIGHT 03/06/17 16:55 Anisocytosis 1+ 03/06/17 16:55 PT 20.4 SEC (11.4-15.4) H 03/06/17 16:55 INR 1.64 03/06/17 16:55 VBG pH 7.45 (7.30-7.42) H 03/06/17 16:55 VBG pCO2 36.9 mmHg (35-63) 03/06/17 16:55 VBG HCO3 25.0 mmol/L (20-32) 03/06/17 16:55 VBG Base Excess 1.2 mmol/L 03/06/17 16:55 Sodium 136.5 mmol/L (137-145) L 03/06/17 16:55 Potassium 3.4 mmol/L (3.6-5.0) L 03/06/17 16:55 Chloride 99 mmol/L (98-107) 03/06/17 16:55 Carbon Dioxide 23 mmol/L (22-30) 03/06/17 16:55 Anion Gap 15 (5-19) 03/06/17 16:55 BUN 21 mg/dL (7-20) H 03/06/17 16:55 Creatinine 0.73 mg/dL (0.52-1.25) 03/09/17 17:45 Est GFR ( Amer) > 60 (>60) 03/09/17 17:45 Est GFR (Non-Af Amer) > 60 (>60) 03/09/17 17:45 Glucose 172 mg/dL (75-110) H 03/06/17 16:55 POC Glucose 99 mg/dL (70-110) 03/12/17 05:49 Lactic Acid 1.8 mmol/L (0.7-2.1) 03/06/17 16:55 Calcium 8.2 mg/dL (8.4-10.2) L 03/06/17 16:55 Total Bilirubin 1.2 mg/dL (0.2-1.3) 03/06/17 16:55 Direct Bilirubin 0.6 mg/dL (0.0-0.4) H 03/06/17 16:55 Indirect Bilirubin Not Reportable 03/06/17 16:55 Neonat Total Bilirubin Not Reportable 03/06/17 16:55 AST 33 U/L (14-36) 03/06/17 16:55 ALT 37 U/L (9-52) 03/06/17 16:55 Alkaline Phosphatase 105 U/L (38-126) 03/06/17 16:55 Total Protein 6.4 g/dL (6.3-8.2) 03/06/17 16:55 Albumin 3.1 g/dL (3.5-5.0) L 03/06/17 16:55 Urine Color YELLOW 03/06/17 17:10 Urine Appearance SLIGHTLY-CLOUDY 03/06/17 17:10 Urine pH 5.0 (5.0-9.0) 03/06/17 17:10 Ur Specific [place] 1.018 03/06/17 17:10 Urine Protein NEGATIVE mg/dL (NEGATIVE) 03/06/17 17:10 Urine Glucose (UA) NEGATIVE mg/dL (NEGATIVE) 03/06/17 17:10 Urine Ketones NEGATIVE mg/dL (NEGATIVE) 03/06/17 17:10 Urine Blood SMALL (NEGATIVE) H 03/06/17 17:10 Urine Nitrite NEGATIVE (NEGATIVE) 03/06/17 17:10 Urine Bilirubin NEGATIVE (NEGATIVE) 03/06/17 17:10 Urine Urobilinogen NEGATIVE mg/dL (<2.0) 03/06/17 17:10 Ur Leukocyte Esterase SMALL (NEGATIVE) H 03/06/17 17:10 Urine WBC (Auto) 11 /HPF 03/06/17 17:10 Urine RBC (Auto) 5 /HPF 03/06/17 17:10 Urine Bacteria (Auto) TRACE /HPF 03/06/17 17:10 Squamous Epi Cells Auto 13 /HPF 03/06/17 17:10 Urine Mucus (Auto) RARE /LPF 03/06/17 17:10 Urine Ascorbic Acid NEGATIVE (NEGATIVE) 03/06/17 17:10 Time Trough Drawn 1745 03/09/17 17:45 Vancomycin Trough 8.0 ug/mL (5.0-20.0) 03/09/17 17:45 Impressions: Chest X-Ray 03/09/17 00:00 IMPRESSION: Cardiomegaly. Mild vascular congestion. Qualifiers PATEINT BEING DISCHARGED WITH ANY OF THE FOLLOWING DIAGNOSIS?: No Plan Discharge Plan: home on cefdinir 3d. 6d ov
[2017-03-12 08:26] VITALS: BP 137/71
== END 2017-03-12 09:15 | disposition home or self-care (01) | DRG 603 ==
LOC: ER 15:46 → UNDOADMIN 19:37 → EH 19:37 → 4N 21:20
PROVIDERS: ADMIT Family Medicine; ATTEND Family Medicine
DX: L03.116 Cellulitis of left lower limb (principal); L03.115 Cellulitis of right lower limb; I50.32 Chronic diastolic (congestive) heart failure; J43.1 Panlobular emphysema; I48.2 Chronic atrial fibrillation; K21.9 Gastro-esophageal reflux disease without esophagitis; F32.9 Major depressive disorder, single episode, unspecified; E11.9 Type 2 diabetes mellitus without complications; K59.00 Constipation, unspecified; Z79.899 Other long term (current) drug therapy; Z79.4 Long term (current) use of insulin; W55.03XA Scratched by cat, initial encounter; Y93.9 Activity, unspecified; Y92.9 Unspecified place or not applicable; Y99.9 Unspecified external cause status; Z87.891 Personal history of nicotine dependence; Z88.0 Allergy status to penicillin; Z88.8 Allergy status to other drugs, medicaments and biological substances
CPT/HCPCS: 36415; 71010; 71020; 80053; 80202; 81001; 82565; 82803; 82962; 83605; 85025; 85610; 87040; 87086; 93005; 93010; 94640; 96360; 99291; J0456; J0696; J1815; J2405; J3370; J3490; J7030; J7060; J7620

== ENCOUNTER → 2017-03-18 | Outpatient (CLI) | payer MEDICARE, OTHER | LOC: OD 15:19 | PROVIDERS: ATTEND Family Medicine | DX: M1A.09X0 Idiopathic chronic gout, multiple sites, without tophus (tophi) (principal) | CPT/HCPCS: 36415; 84550 ==

== ENCOUNTER 2019-02-02 12:18 | Inpatient (IN) | payer MEDICARE, OTHER ==
--- NOTE | 2019-02-02 12:51 | ER Document Report ---
ED General - General Stated Complaint: SHORTNESS OF BREATH Time Seen by Provider: 02/02/19 12:48 Primary Care Provider: PREET العلي PA [Primary Care Provider] - Follow up as needed Notes: Patient says that she is been having worsening month or 2. Was seen by her primary care physician, Dr. Giron, on December 26. Has not seen him since. Gato almazan is on home inhalers, but no nebulizer and on no oxygen. She is gotten especially worse in the past 24 hours and had difficulty sleeping or laying down last night. EMS was called today and when they picked the patient up her oxygen level was 90% on room air. Patient says she has had some cough yesterday and this morning. Some congestion with the cough. Not aware of any fever. Patient has a history of congestive heart failure. Also a history of atrial fibrillation. Insulin-dependent diabetic. Hypertension. Former smoker, stopped 19 years ago. TRAVEL OUTSIDE OF THE [place] IN LAST 30 DAYS: No - Related Data Allergies/Adverse Reactions: niacin [Niacin] Allergy (Verified 05/27/13 23:09) rash Penicillins Allergy (Verified 05/27/13 23:09) rash Past Medical History - Social History Smoking Status: Former Smoker - Stopped many years ago. Family History: CAD, CVA, DM, Hypertension, Malignancy - Past Medical History Cardiac Medical History: Reports: Hx Atrial Fibrillation, Hx Congestive Heart Failure - chronic diastolic, Hx Hypercholesterolemia, Hx Hypertension Pulmonary Medical History: Reports: Hx COPD Endocrine Medical History: Reports: Hx Diabetes Mellitus Type 1, Hx Diabetes Mellitus Type 2 GI Medical History: Reports: Hx Gastroesophageal Reflux Disease Musculoskeletal Medical History: Reports Hx Arthritis, Reports Hx Musculoskeletal Trauma - 2012 fracture L humerus Skin Medical History: Reports Hx Psoriasis Psychiatric Medical History: Reports: Hx Anxiety, Hx Depression Traumatic Medical History: Reports: Hx Fractures Past Surgical History: Reports: Hx Breast Surgery, Other - cataracts & L breast biopsy & cryo - Immunizations Immunizations up to date: Yes Hx Diphtheria, Pertussis, Tetanus Vaccination: No Hx Pneumococcal Vaccination: 05/29/13 Review of Systems - Review of Systems Notes: REVIEW OF SYSTEMS: CONSTITUTIONAL : Denies fever. EENT: Denies eye, ear, nose or mouth or throat pain or other symptoms. CARDIOVASCULAR: Denies chest pain. RESPIRATORY: See HPI. GASTROINTESTINAL: Denies abdominal pain or nausea, vomiting, or diarrhea. GENITOURINARY: Denies difficulty or painful urinating, urinary frequency, blood in urine. MUSCULOSKELETAL: Denies back or neck pain. Denies joint pain or swelling. No leg pains. No significant swelling of either leg. SKIN: Denies rash or skin lesions. NEUROLOGICAL: Denies LOC or altered mental status. Denies headache. Denies sensory loss or motor deficits. ALL OTHER SYSTEMS REVIEWED AND NEGATIVE. Physical Exam - Vital signs Vitals: Resp Pulse Ox 24 H 99 02/02/19 12:24 02/02/19 12:24 Interpretation: Normal. No: Hypoxic Notes: PHYSICAL EXAMINATION: GENERAL: Well-appearing, in no acute distress. HEAD: Atraumatic, normocephalic. EYES: Pupils equal round and reactive to light, extraocular movements intact. ENT: oropharynx clear without exudates. Moist mucous membranes. NECK: Normal range of motion, supple. LUNGS: Breath sounds scattered wheezes bilaterally. HEART: Irregularly irregular rate and rhythm without murmurs. ABDOMEN: Soft, nontender. No guarding or rebound. No masses. BACK: No tenderness throughout entire back. EXTREMITIES: Normal range of motion without pain. +1 pretibial edema. Negative Homans bilaterally. NEUROLOGICAL: Normal speech, normal gait. Normal sensory, motor, and reflex exams. Awake, alert, and oriented x3. Cranial nerves normal. PSYCH: Normal mood, normal affect. SKIN: Warm, dry, no rashes. Course - Re-evaluation Re-evalutation: 02/02/19 15:14 Spoke with patient's primary care provider, Dr. Giron, and he will admit the patient for further evaluation. - Vital Signs Vital signs: Temp Pulse Resp BP Pulse Ox 19 141/66 H 92 02/02/19 14:00 02/02/19 14:53 02/02/19 14:00 - Laboratory Result Diagrams: 02/02/19 12:39 02/02/19 12:39 Laboratory results interpreted by me: 02/02/19 02/02/19 02/02/19 12:39 12:39 13:18 RBC 5.62 H Hgb 15.9 H Hct 49.4 H RDW 16.7 H Potassium 3.3 L Chloride 96 L Carbon Dioxide 36 H Alkaline Phosphatase 166 H Urine Blood SMALL H - Diagnostic Test Radiology reviewed: Image reviewed, Reports reviewed - CT scan of the chest shows fluid, consolidation, and lymphadenopathy. The differential includes ne oplastic disease, infectious disease. Also appears to be a mass in the distal esophagus region. Radiology results interpreted by me: 02/02/19 15:13 Chest x-ray with a very large right pleural effusion. - EKG Interpretation by Oh Rhythm: A.Fib Discharge - Discharge Clinical Impression: Pleural effusion on right, Chronic atrial fibrillation Condition: Stable Disposition: ADMITTED INPATIENT Admitting Provider: Giron Unit Admitted: Telemetry
[2019-02-02 12:58] LABS: ABSOLUTE BASOPHILS # (AUTO) 0.1 10^3/uL (0.0-0.2); ABSOLUTE EOSINOPHILS # (AUTO) 0.1 10^3/uL (0.0-0.6); ABSOLUTE LYMPHOCYTES (AUTO) 1.6 10^3/uL (0.5-4.7); ABSOLUTE NEUT (AUTO) 7.4 10^3/uL (1.7-8.2); BASOPHILS % (AUTO) 0.5 % (0-2); EOSINOPHILS % (AUTO) 0.8 % (0-6); HEMATOCRIT 49.4 % (36.0-47.0); HEMOGLOBIN 15.9 g/dL (12.0-15.5); LYMPHOCYTES % (AUTO) 15.6 % (13-45); MEAN CORPUSCULAR HEMOGLOBIN 28.4 pg (27.0-33.4); MEAN CORPUSCULAR HGB CONC 32.3 g/dL (32.0-36.0); MEAN CORPUSCULAR VOLUME 88 fl (80-97); MONOCYTES % (AUTO) 10.2 % (3-13); PLATELET COUNT 265 10^3/uL (150-450); RED BLOOD COUNT 5.62 10^6/uL (3.72-5.28); RED CELL DISTRIBUTION WIDTH 16.7 % (11.5-14.0); SEGMENTED NEUTROPHILS % (AUTO) 72.9 % (42-78); TOTAL CELLS COUNTED % (AUTO) 100 %; WHITE BLOOD COUNT 10.1 10^3/uL (4.0-10.5)
--- NOTE | 2019-02-02 13:21 | RADIOLOGY REPORT (SQ) ---
EXAM DESCRIPTION: CHEST SINGLE VIEW COMPLETED DATE/TIME: 02/02/2019 1:07 pm REASON FOR STUDY: sob COMPARISON: 03/06/2017 EXAM PARAMETERS: NUMBER OF VIEWS: One view. TECHNIQUE: Single frontal radiographic view of the chest acquired. RADIATION DOSE: NA LIMITATIONS: None. FINDINGS: LUNGS AND PLEURA: There is a moderate to large right pleural effusion with associated atel ectasis or consolidation. MEDIASTINUM AND HILAR STRUCTURES: No masses. Contour normal. HEART AND VASCULAR STRUCTURES: Cardiomegaly. BONES: No acute findings. HARDWARE: None in the chest. OTHER: No other significant finding. IMPRESSION: 1. There is a moderate to large right pleural effusion with associated atelectasis or c onsolidation. Differential considerations include infection and malignancy. Consider CT to further evaluate. 2. Cardiomegaly. TECHNICAL DOCUMENTATION: JOB ID: [id number] [employer]- All Rights Reserved Reading location - IP/workstation name: [email or web address]
[2019-02-02 13:33] LABS: APPEARANCE,URINE CLEAR; BILIRUBIN,URINE NEGATIVE (NEGATIVE); COLOR,URINE STRAW; GLUCOSE, URINE NEGATIVE (NEGATIVE); KETONES,URINE NEGATIVE (NEGATIVE); LEUKOCYTE ESTERASE,URINE NEGATIVE (NEGATIVE); NITRITE,URINE NEGATIVE (NEGATIVE); PROTEIN,URINE NEGATIVE (NEGATIVE); URINE SPECIFIC GRAVITY 1.004; UROBILINOGEN,URINE NEGATIVE mg/dL (<2.0)
[2019-02-02 13:34] LABS: CREATINE KINASE MB 0.72 ng/mL (<4.55); TROPONIN I 0.014 ng/mL
[2019-02-02 13:42] LABS: ALANINE AMINOTRANSFERASE 19 U/L (9-52); ALBUMIN 3.9 g/dL (3.5-5.0); ALKALINE PHOSPHATASE 166 U/L (38-126); ANION GAP 11 (5-19); ASPARTATE AMINO TRANSFERASE 21 U/L (14-36); BILIRUBIN,DIRECT 0.3 mg/dL (0.0-0.4); BILIRUBIN,TOTAL 0.8 mg/dL (0.2-1.3); BLOOD UREA NITROGEN 12 mg/dL (7-20); CARBON DIOXIDE 36 mmol/L (22-30); CHLORIDE 96 mmol/L (98-107); CREATINE KINASE 40 U/L (30-135); GLUCOSE 95 mg/dL (75-110); POTASSIUM 3.3 mmol/L (3.6-5.0); SODIUM 142.7 mmol/L (137-145); TOTAL PROTEIN 7.7 g/dL (6.3-8.2)
--- NOTE | 2019-02-02 14:35 | RADIOLOGY REPORT (SQ) ---
EXAM DESCRIPTION: CT CHEST WITH COMPLETED DATE/TIME: 02/02/2019 2:16 pm REASON FOR STUDY: Right pleural effusion. COMPARISON: Chest radiographs 02/02/2019 TECHNIQUE: CT scan of the chest performed using helical scanning technique with dynamic intravenous contrast injection. Images reviewed with lung, soft tissue and bone windows. Reconstructed coronal and sagittal MPR and MIP images reviewed. All images stored on PACS. All CT scanners at this facility use dose modulation, iterative reconstruction, and/or weight based d osing when appropriate to reduce radiation dose to as low as reasonably achievable (ALARA). [facility]: Dose Right [facility]: CareDose [facility]: Dose Right [facility]: Teradose 4D [facility]: [employer] CONTRAST TYPE AND DOSE: contrast/concentration: Isovue 350.00 mg/ml; Total Contrast Delivered: 80.0 ml; Total Saline Delivered: 55.0 ml RENAL FUNCTION: BUN 12; creatinine 0.73 RADIATION DOSE: CT Rad equipment meets quality standard of care and radiation dose reduction techniq ues were employed. CTDIvol: 16.0 mGy. DLP: 602 mGy-cm. . LIMITATIONS: None. FINDINGS: LUNGS AND PLEURA: Moderate right-sided pleural effusion with compressive atelectasis of th e right lower and right middle lobes. Focal consolidation is seen of the left lower lobe. HILAR AND MEDIASTINAL STRUCTURES: Multiple mediastinal lymph nodes are demonstrated to include right hilar, AP window, subcarinal, and peritracheal. Lobular soft tissue attenuation is seen within the s ubcarinal posterior mediastinum ; this appears to be associated with the esophagus. HEART AND VASCULAR STRUCTURES: No aneurysm or dissection. No central pulmonary emboli. No pericardi al effusion. HARDWARE: None in the chest. UPPER ABDOMEN: No significant findings. Limited exam. THYROID AND OTHER SOFT TISSUES: No masses. No adenopathy. BONES: No significant finding. OTHER: No other significant finding. IMPRESSION: 1. Moderate right-sided pleural effusion with compressive atelectasis of the right lowe r and right middle lobes. Focal, rounded consolidation involving the left lower lobe. Mediastinal l ymphadenopathy. Differential considerations are broad to include both infectious and neoplastic caus es. No evidence of pulmonary embolus. 2. Lobular soft tissue attenuation within the subcarinal posterior mediastinum is of uncertain etiol ogy. However, this appears to be associated with the esophagus and may represent an esophageal diver ticulum or mass. TECHNICAL DOCUMENTATION: JOB ID: [id number] Quality ID # [id number]: Final reports with documentation of one or more dose reduction techniques (e.g., Au tomated exposure control, adjustment of the mA and/or kV according to patient size, use of iterative reconstruction technique) 2010 [employer]- All Rights Reserved Reading location - IP/workstation name: [email or web address]
[2019-02-02] MEDS: LEVOFLOXACIN 500 MG TABLET PO SCH (18:39)
[2019-02-02] MEDS ORDERED: PREDNISONE 20 MG TABLET PO SCH (19:30)
[2019-02-02] MEDS: IPRATROPIUM/ALBUTEROL 0.5-2.5 MG/3 ML AMPUL NEB SCH (22:13)
[2019-02-02] MEDS: ATORVASTATIN CALCIUM 40 MG TABLET PO SCH (22:15)
--- NOTE | 2019-02-02 23:20 | EKG REPORT ---
SEVERITY:- ABNORMAL ECG - ATRIAL FIBRILLATION, V-RATE 79-115 REPOL ABNRM SUGGESTS ISCHEMIA, DIFFUSE LEADS : Confirmed by: Chilo Quinones 02-Feb-2019 23:19:14
[2019-02-02] MEDS ORDERED: DEXTROSE 40% GEL 15 GM TUBE X 2 PO PRN (23:30)
[2019-02-02] MEDS ORDERED: DEXTROSE 40% GEL 15 GM TUBE PO PRN (23:30)
[2019-02-02] MEDS ORDERED: GLUCAGON,HUMAN RECOMB 1 MG INJ IM PRN (23:30)
[2019-02-02] MEDS ORDERED: DEXTROSE 50%-WATER SYRINGE 12.5 GM/25 ML DOSE IV PRN (23:30)
[2019-02-02] MEDS ORDERED: DEXTROSE 50%-WATER SYRINGE 25 GM/50 ML DOSE IV PRN (23:30)
[2019-02-03] MEDS ORDERED: INSULIN REG, HUMAN 100 UNIT/ML 3 ML VIAL (PYX) ONE (00:37)
--- NOTE | 2019-02-03 05:20 | PDOC H&P ---
History of Present Illness Admission Date/PCP: 02/02/19 15:40 THOMAS GROVES Patient complains of: dyspnea History of Present Illness: ZENAIDA MALHOTRA is a 83 year old female with chronic but progressive dyspnea. Today daughter said sat89. No home oxygen. Past Medical History Cardiac Medical History: Reports: Atrial Fibrillation, Congestive Heart Failure - chronic diastolic, Hyperlipidema, Hypertension Pulmonary Medical History: Reports: Chronic Obstructive Pulmonary Disease (COPD) EENT Medical History: Reports: None Neurological Medical History: Reports: None Endocrine Medical History: Reports: Diabetes Mellitus Type 2, Obesity Renal/ Medical History: Reports: None Malignancy Medical History: Reports: None GI Medical History: Reports: Gastroesophageal Reflux Disease Musculoskeltal Medical History: Reports: Arthritis Skin Medical History: Reports: Psoriasis Psychiatric Medical History: Reports: Depression Hematology: Reports: Anemia - iron & b12 Infectious Medical History: Reports: None Past Surgical History Past Surgical History: Reports: Other - cataracts & L breast biopsy & cryo Social History Information Source: Dr. Greenberg Lives with: Family Smoking Status: Former Smoker - 1997 Last Time Smoked: 1997 Frequency of Alcohol Use: None Hx Recreational Drug Use: No Hx Prescription Drug Abuse: No - Advance Directive Resuscitation Status: Full Code Family History Family History: CAD, CVA, DM, Hypertension, Malignancy Parental Family History Reviewed: Yes Children Family History Reviewed: Yes Sibling(s) Family History Reviewed.: Yes Medication/Allergy Home Medications: Albuterol Sulfate [Proair Hfa Inhalation Aerosol 8.5 gm Mdi] 2 puff IH Q6HP PRN 02/02/19 Allopurinol [Zyloprim] 300 mg PO DAILY 02/02/19 Atorvastatin Calcium [Lipitor 40 mg Tablet] 40 mg PO QHS 02/02/19 Cyanocobalamin (Vitamin B-12) [Vitamin B-12 1000 Mcg Tablet] 1,000 mcg PO DAILY 02/02/19 Dabigatran Etexilate Mesylate [Pradaxa 150 mg Capsule] 150 mg PO Q12 02/02/19 Diltiazem HCl [Cardizem [place]] 360 mg PO DAILY 02/02/19 Docusate Sodium [Colace 100 mg Capsule] 100 mg PO DAILY MDD 200 MG 02/02/19 Ferrous Sulfate [Iron] 325 mg PO DAILY 02/02/19 Fluticasone/Salmeterol [Advair 250-50 Diskus 14 Dose/Diskus] 1 puff IH Q12 02/02/19 Furosemide [Lasix] 40 mg PO BID 02/02/19 Insulin NPH Hum/Reg Insulin Hm [Humulin 70/30 Kwikpen] 35 unit SQ BID 02/02/19 Isosorbide Mononitrate [Imdur 30 mg Tablet.er] 30 mg PO DAILY 02/02/19 Metoprolol Tartrate [Lopressor 25 mg Tablet] 25 mg PO Q12 02/02/19 Omeprazole Magnesium [Prilosec Otc] 20 mg PO DAILY 02/02/19 Tiotropium [place] [Spiriva Handihaler 5 Cap/Kit (18 Mcg/Cap)] 1 cap IH DAILY 02/02/19 Allergies/Adverse Reactions: niacin [Niacin] Allergy (Verified 05/27/13 23:09) rash Penicillins Allergy (Verified 05/27/13 23:09) rash Review of Systems Constitutional: PRESENT: weight loss. ABSENT: fever(s), headache(s) Nose, Mouth, and Throat: ABSENT: headache(s), sore throat Cardiovascular: PRESENT: dyspnea on exertion, orthropnea Respiratory: PRESENT: cough, dyspnea, sputum Gastrointestinal: PRESENT: constipation, nausea. ABSENT: abdominal pain, diarrhea, hematochezia, vomiting Genitourinary: ABSENT: dysuria, hematuria Integumentary: ABSENT: rash Physical Exam Vital Signs: Temp Pulse Resp BP Pulse Ox 19 141/66 H 92 02/02/19 14:00 02/02/19 14:53 02/02/19 14:00 Intake & Output 02/01/19 02/02/19 02/03/19 07:59 07:59 07:59 Weight 200 lb General appearance: PRESENT: no acute distress Eye exam: ABSENT: conjunctival injection, scleral icterus Mouth exam: PRESENT: dry mucosa Neck exam: ABSENT: lymphadenopathy, tenderness, thyromegaly, tracheal deviation Respiratory exam: PRESENT: rhonchi, wheezes. ABSENT: rales Cardiovascular exam: PRESENT: irregular rhythm. ABSENT: diastolic murmur, systolic murmur GI/Abdominal exam: ABSENT: mass, organolmegaly, tenderness Extremities exam: ABSENT: pedal edema Neurological exam: PRESENT: oriented to situation Psychiatric exam: PRESENT: appropriate affect Results Laboratory Results: Abnormal - 24 hr 02/02/19 02/02/19 02/02/19 12:39 12:39 13:18 RBC 5.62 H Hgb 15.9 H Hct 49.4 H RDW 16.7 H Potassium 3.3 L Chloride 96 L Carbon Dioxide 36 H Alkaline Phosphatase 166 H Urine Blood SMALL H Impressions: Chest X-Ray 02/02/19 12:28 IMPRESSION: 1. There is a moderate to large right pleural effusion with associated atelectasis or consolidation. Differential considerations include infection and malignancy. Consider CT to further evaluate. 2. Cardiomegaly. Chest CT 02/02/19 13:54 IMPRESSION: 1. Moderate right-sided pleural effusion with compressive atelectasis of the right lower and right middle lobes. Focal, rounded consolidation involving the left lower lobe. Mediastinal lymphadenopathy. Differential considerations are broad to include both infectious and neoplastic causes. No evidence of pulmonary embolus. 2. Lobular soft tissue attenuation within the subcarinal posterior mediastinum is of uncertain etiology. However, this appears to be associated with the esophagus and may represent an esophageal diverticulum or mass. Assessment & Plan - Diagnosis (1) Pleural effusion on right Is this a current diagnosis for this admission?: Yes Plan: thoracentesis when pradaxa wears off in 2d (2) Panlobular emphysema Is this a current diagnosis for this admission?: Yes 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 Is this a current diagnosis for this admission?: Yes (6) Other vitamin B12 deficiency anemias Is this a current diagnosis for this admission?: Yes (7) Type 2 diabetes mellitus without complications Qualifiers: Diabetes mellitus assisted insulin use: with assisted use Qualified Code(s): E11.9 - Type 2 diabetes mellitus without complications; 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
--- NOTE | 2019-02-03 07:44 | PDOC PROGRESS REPORT ---
Subjective Progress Note for:: 02/03/19 Subjective:: slightly less dyspnea Reason For Visit: R PLEURAL EFFUSION,CHEST ADENOPATHY,ESOPHAGEAL MAS Physical Exam Vital Signs: Temp Pulse Resp BP Pulse Ox 97.6 F 82 22 H 152/60 H 91 L 02/03/19 05:03 02/03/19 05:03 02/03/19 05:03 02/03/19 05:03 02/03/19 05:03 Intake & Output 02/01/19 02/02/19 02/03/19 07:59 07:59 07:59 Weight 212 lb 1.355 oz General appearance: PRESENT: no acute distress Respiratory exam: PRESENT: decreased breath sounds - R base.. ABSENT: rales, wheezes Cardiovascular exam: PRESENT: irregular rhythm. ABSENT: diastolic murmur, systolic murmur GI/Abdominal exam: ABSENT: tenderness Extremities exam: ABSENT: pedal edema Neurological exam: PRESENT: oriented to situation Psychiatric exam: PRESENT: appropriate affect Results Laboratory Results: Abnormal - 24 hr 02/02/19 02/02/19 02/02/19 12:39 12:39 13:18 RBC 5.62 H Hgb 15.9 H Hct 49.4 H RDW 16.7 H Potassium 3.3 L Chloride 96 L Carbon Dioxide 36 H POC Glucose Alkaline Phosphatase 166 H Urine Blood SMALL H 02/02/19 21:28 RBC Hgb Hct RDW Potassium Chloride Carbon Dioxide POC Glucose 154 H Alkaline Phosphatase Urine Blood Impressions: Chest X-Ray 02/02/19 12:28 IMPRESSION: 1. There is a moderate to large right pleural effusion with associated atelectasis or consolidation. Differential considerations include infection and malignancy. Consider CT to further evaluate. 2. Cardiomegaly. Chest CT 02/02/19 13:54 IMPRESSION: 1. Moderate right-sided pleural effusion with compressive atelectasis of the right lower and right middle lobes. Focal, rounded consolida tion involving the left lower lobe. Mediastinal lymphadenopathy. Differential considerations are broad to include both infectious and neoplastic causes. No evidence of pulmonary embolus. 2. Lobular soft tissue attenuation within the subcarinal posterior mediastinum is of uncertain etiology. However, this appears to be associated with the esophagus and may represent an esophageal diverticulum or mass. Assessment & Plan - Diagnosis (1) Pleural effusion on right Is this a current diagnosis for this admission?: Yes Plan: holding pradaxa. In AM PT PTT US chest tube. Cytology cultures. (2) Panlobular emphysema Is this a current diagnosis for this admission?: Yes Plan: No wheeze. Hold prednisone. 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 Is this a current diagnosis for this admission?: Yes (6) Other vitamin B12 deficiency anemias Is this a current diagnosis for this admission?: Yes (7) Type 2 diabetes mellitus without complications Qualifiers: Diabetes mellitus senior care insulin use: with buttermaker continuous churn use Qualified Code(s): E11.9 - Type 2 diabetes mellitus without complications; Z79.4 - intermediate frame tender (current) use of insulin Is this a current diagnosis for this admission?: Yes (8) Gastro-esophageal reflux disease without esophagitis Is this a current diagnosis for this admission?: Yes (9) Acute exacerbation of chronic bronchitis Is this a current diagnosis for this admission?: Yes Plan: on levaquin
[2019-02-03] MEDS: IPRATROPIUM/ALBUTEROL 0.5-2.5 MG/3 ML AMPUL NEB SCH ×4 (08:08→19:47)
[2019-02-03] MEDS: INSULIN REG, HUMAN 100 UNIT/ML 3 ML VIAL (PYX) SUBCUT SCH ×4 (08:16→22:32)
[2019-02-03] MEDS: DILTIAZEM HCL 120 MG CAP.SR.24H PO SCH (09:38)
[2019-02-03] MEDS: FUROSEMIDE 40 MG TABLET PO SCH ×2 (09:38→17:04)
[2019-02-03] MEDS: LUBIPROSTONE 24 MCG CAPSULE PO SCH ×2 (09:38→17:04)
[2019-02-03] MEDS: ISOSORBIDE MONONITRATE 30 MG TAB.ER.24H PO SCH (09:39)
[2019-02-03] MEDS: ALLOPURINOL 300 MG TABLET PO SCH (09:39)
[2019-02-03] MEDS: LEVOFLOXACIN 500 MG TABLET PO SCH (17:04)
[2019-02-03] MEDS: ATORVASTATIN CALCIUM 40 MG TABLET PO SCH (22:34)
[2019-02-04 05:12] LABS: INTERNATIONAL RATION (INR) 1.01; PARTIAL THROMBOPLASTIN TIME 35.3 SEC (23.5-35.8); PROTHROMBIN TIME 13.9 SEC (11.4-15.4)
--- NOTE | 2019-02-04 07:29 | PDOC PROGRESS REPORT ---
Subjective Progress Note for:: 02/04/19 Subjective:: less cough Reason For Visit: R PLEURAL EFFUSION,CHEST ADENOPATHY,ESOPHAGEAL MAS Physical Exam Vital Signs: Temp Pulse Resp BP Pulse Ox 97.5 F 110 H 18 147/55 H 92 02/04/19 04:05 02/04/19 04:05 02/04/19 04:05 02/04/19 04:05 02/04/19 04:05 Intake & Output 02/02/19 02/03/19 02/04/19 07:59 07:59 07:59 Intake Total 700 Balance 700 Weight 212 lb 1.355 oz 213 lb 2.992 oz General appearance: PRESENT: no acute distress Respiratory exam: PRESENT: decreased breath sounds - R base Cardiovascular exam: ABSENT: diastolic murmur, irregular rhythm, systolic murmur GI/Abdominal exam: ABSENT: mass, organolmegaly, tenderness Extremities exam: ABSENT: pedal edema Neurological exam: PRESENT: oriented to situation Psychiatric exam: PRESENT: appropriate affect Results Laboratory Results: 02/02/19 12:39 02/02/19 12:39 02/02/19 02/02/19 12:39 12:39 Creatine Kinase 40 CK-MB (CK-2) 0.72 Troponin I 0.014 Impressions: Chest X-Ray 02/02/19 12:28 IMPRESSION: 1. There is a moderate to large right pleural effusion with associated atelectasis or consolidation. Differential considerations include infection and malignancy. Consider CT to further evaluate. 2. Cardiomegaly. Chest CT 02/02/19 13:54 IMPRESSION: 1. Moderate right-sided pleural effusion with compressive atelectasis of the right lower and right middle lobes. Focal, rounded consolidation involving the left lower lobe. Mediastinal lymphadenopathy. Differential considerations are broad to include both infectious and neoplastic causes. No evidence of pulmonary embolus. 2. Lobular soft tissue attenuation within the subcarinal posterior mediastinum is of uncertain etiology. However, this appears to be associated with the esophagus and may represent an esophageal diverticulum or mass. Assessment & Plan - Diagnosis (1) Pleural effusion on right Is this a current diagnosis for this admission?: Yes Plan: radiology protocol is 3d off pradaxa before chest tube. They will do it Wednesday 2d hence. (2) Acute exacerbation of chronic bronchitis Is this a current diagnosis for this admission?: Yes (3) Panlobular emphysema Is this a current diagnosis for this admission?: Yes (4) Chronic diastolic heart failure Is this a current diagnosis for this admission?: Yes Plan: K3.3. Added 20meq (5) Afib Qualifiers: Atrial fibrillation type: chronic Qualified Code(s): I48.2 - Chronic atrial fibrillation Is this a current diagnosis for this admission?: Yes (6) Idiopathic chronic gout of multiple sites without tophus Is this a current diagnosis for this admission?: Yes (7) Other vitamin B12 deficiency anemias Is this a current diagnosis for this admission?: Yes (8) Type 2 diabetes mellitus without complications Qualifiers: Diabetes mellitus usp insulin use: with usp use Qualified Code(s): E11.9 - Type 2 diabetes mellitus without complications; Z79.4 - terminal make up operator (current) use of insulin Is this a current diagnosis for this admission?: Yes (9) Gastro-esophageal reflux disease without esophagitis Is this a current diagnosis for this admission?: Yes - Inpatient Certification Medical Necessity: Failure to Improve With Outpatient Therapy, Significant Comorbidiites Make Outpatient Treatment Too Risky, Need Close Monitoring Due to Risk of Patient Decompensation, Need For Continuous Telemetry Monitoring, Need for Nebulizer Therapy and Monitoring of Response, Risk of Complication if Not Cared For in Hospital, Risk of Diagnosis Which Will Require Inpatient Eval/Care/Monitoring
[2019-02-04] MEDS: IPRATROPIUM/ALBUTEROL 0.5-2.5 MG/3 ML AMPUL NEB SCH ×4 (08:08→19:30)
[2019-02-04] MEDS: INSULIN REG, HUMAN 100 UNIT/ML 3 ML VIAL (PYX) SUBCUT SCH ×4 (08:32→22:20)
[2019-02-04] MEDS: LUBIPROSTONE 24 MCG CAPSULE PO SCH ×2 (09:04→17:19)
[2019-02-04] MEDS: DILTIAZEM HCL 120 MG CAP.SR.24H PO SCH (09:04)
[2019-02-04] MEDS: ISOSORBIDE MONONITRATE 30 MG TAB.ER.24H PO SCH (09:05)
[2019-02-04] MEDS: FUROSEMIDE 40 MG TABLET PO SCH ×2 (09:05→17:19)
[2019-02-04] MEDS: ALLOPURINOL 300 MG TABLET PO SCH (09:05)
[2019-02-04] MEDS: CYANOCOBALAMIN (VITAMIN B-12) 1,000 MCG TABLET PO SCH (09:08)
[2019-02-04] MEDS: POTASSIUM CHLORIDE 10 MEQ CAPSULE.ER PO SCH (09:08)
[2019-02-04 12:26] LABS: ANION GAP 13 (5-19); BLOOD UREA NITROGEN 11 mg/dL (7-20); CALCIUM 9.1 mg/dL (8.4-10.2); CARBON DIOXIDE 36 mmol/L (22-30); CHLORIDE 92 mmol/L (98-107); GLUCOSE 131 mg/dL (75-110); POTASSIUM 3.6 mmol/L (3.6-5.0); SODIUM 140.5 mmol/L (137-145)
[2019-02-04] MEDS: LEVOFLOXACIN 500 MG TABLET PO SCH (17:19)
[2019-02-04] MEDS: ATORVASTATIN CALCIUM 40 MG TABLET PO SCH (22:20)
[2019-02-05] MEDS: IPRATROPIUM/ALBUTEROL 0.5-2.5 MG/3 ML AMPUL NEB SCH (08:11)
--- NOTE | 2019-02-05 08:27 | PDOC PROGRESS REPORT ---
Subjective Progress Note for:: 02/05/19 Subjective:: dyspnea worse abdomen bigger no stool Reason For Visit: R PLEURAL EFFUSION,CHEST ADENOPATHY,ESOPHAGEAL MAS Physical Exam Vital Signs: Temp Pulse Resp BP Pulse Ox 97.8 F 100 17 157/63 H 94 02/05/19 04:00 02/05/19 04:00 02/05/19 04:00 02/05/19 04:00 02/05/19 04:00 Intake & Output 02/04/19 02/05/19 02/06/19 07:59 07:59 07:59 Intake Total 700 500 Balance 700 500 Weight 213 lb 2.992 oz 217 lb 6.012 oz General appearance: PRESENT: mild distress Respiratory exam: PRESENT: decreased breath sounds - R base Cardiovascular exam: PRESENT: irregular rhythm. ABSENT: diastolic murmur, systolic murmur GI/Abdominal exam: PRESENT: distended - wave. ABSENT: mass, organolmegaly, tenderness Extremities exam: ABSENT: pedal edema Neurological exam: PRESENT: oriented to situation Psychiatric exam: PRESENT: appropriate affect Results Laboratory Results: 02/02/19 12:39 02/04/19 11:33 Sodium 140.5 Potassium 3.6 Chloride 92 L Carbon Dioxide 36 H Anion Gap 13 BUN 11 Creatinine 0.64 Est GFR ( Amer) > 60 Est GFR (Non-Af Amer) > 60 Glucose 131 H Calcium 9.1 02/02/19 02/02/19 12:39 12:39 Creatine Kinase 40 CK-MB (CK-2) 0.72 Troponin I 0.014 Impressions: Chest X-Ray 02/02/19 12:28 IMPRESSION: 1. There is a moderate to large right pleural effusion with associated atelectasis or consolidation. Differential considerations include infection and malignancy. Consider CT to further evaluate. 2. Cardiomegaly. Chest CT 02/02/19 13:54 IMPRESSION: 1. Moderate right-sided pleural effusion with compressive atelectasis of the right lower and right middle lobes. Focal, rounded consolidation involving the left lower lobe. Mediastinal lymphadenopathy. Differential considerations are broad to include both infectious and neoplastic causes. No evidence of pulmonary embolus. 2. Lobular soft tissue attenuation within the subcarinal posterior mediastinum is of uncertain etiology. However, this appears to be associated with the esophagus and may represent an esophageal diverticulum or mass. Assessment & Plan - Diagnosis (1) Pleural effusion on right Is this a current diagnosis for this admission?: Yes Plan: US abdomen for ascites. Chest tube tomorrow. 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 Is this a current diagnosis for this admission?: Yes (7) Other vitamin B12 deficiency anemias Is this a current diagnosis for this admission?: Yes (8) Type 2 diabetes mellitus without complications Qualifiers: Diabetes mellitus laborer marine terminal insulin use: with laborer marine terminal use Qualified Code(s): E11.9 - Type 2 diabetes mellitus without complications; Z79.4 - [facility] (current) use of insulin Is this a current diagnosis for this admission?: Yes (9) Gastro-esophageal reflux disease without esophagitis Is this a current diagnosis for this admission?: Yes (10) Constipation Qualifiers: Constipation type: slow transit constipation Qualified Code(s): K59.01 - Slow transit constipation Is this a current diagnosis for this admission?: Yes Plan: enema - Inpatient Certification Medical Necessity: Failure to Improve With Outpatient Therapy, Significant Comorbidiites Make Outpatient Treatment Too Risky, Need Close Monitoring Due to Risk of Patient Decompensation, Need For Continuous Telemetry Monitoring, Need for Surgery, Risk of Complication if Not Cared For in Hospital, Risk of Diagnosis Which Will Require Inpatient Eval/Care/Monitoring
[2019-02-05 08:38] LABS: ANION GAP 10 (5-19); BLOOD UREA NITROGEN 11 mg/dL (7-20); CALCIUM 9.6 mg/dL (8.4-10.2); CARBON DIOXIDE 39 mmol/L (22-30); CHLORIDE 91 mmol/L (98-107); GLUCOSE 139 mg/dL (75-110); POTASSIUM 4.4 mmol/L (3.6-5.0); SODIUM 139.5 mmol/L (137-145)
[2019-02-05] MEDS: INSULIN REG, HUMAN 100 UNIT/ML 3 ML VIAL (PYX) SUBCUT SCH ×4 (09:47→22:00)
--- NOTE | 2019-02-05 09:52 | RADIOLOGY REPORT (SQ) ---
EXAM DESCRIPTION: CHEST 2 VIEWS COMPLETED DATE/TIME: 02/05/2019 9:29 am REASON FOR STUDY: increased dyspnea oxygen requirement with effusi COMPARISON: 02/02/2019 EXAM PARAMETERS: NUMBER OF VIEWS: two views TECHNIQUE: Digital Frontal and Lateral radiographic views of the chest acquired. RADIATION DOSE: NA LIMITATIONS: none FINDINGS: LUNGS AND PLEURA: Right pleural effusion. MEDIASTINUM AND HILAR STRUCTURES: Chronic elevation of the right hemidiaphragm. HEART AND VASCULAR STRUCTURES: Heart enlarged. Vascular congestion. BONES: No acute findings. HARDWARE: None in the chest. OTHER: No other significant finding. IMPRESSION: Persistent right effusion. Interval development of vascular congestion. TECHNICAL DOCUMENTATION: JOB ID: [id number] [employer]- All Rights Reserved Reading location - IP/workstation name: [email or web address]
[2019-02-05] MEDS: DILTIAZEM HCL 120 MG CAP.SR.24H PO SCH (11:14)
[2019-02-05] MEDS: POTASSIUM CHLORIDE 10 MEQ CAPSULE.ER PO SCH (11:15)
[2019-02-05] MEDS: ALLOPURINOL 300 MG TABLET PO SCH (11:16)
[2019-02-05] MEDS: ISOSORBIDE MONONITRATE 30 MG TAB.ER.24H PO SCH (11:16)
[2019-02-05] MEDS: FUROSEMIDE 40 MG TABLET PO SCH ×2 (11:16→17:57)
[2019-02-05] MEDS: CYANOCOBALAMIN (VITAMIN B-12) 1,000 MCG TABLET PO SCH (11:17)
[2019-02-05] MEDS: LUBIPROSTONE 24 MCG CAPSULE PO SCH ×2 (11:17→17:58)
[2019-02-05] MEDS: LEVALBUTEROL HCL NEB 1.25 MG/3 ML AMPUL NEB SCH ×3 (11:56→19:39)
--- NOTE | 2019-02-05 12:39 | RADIOLOGY REPORT (SQ) ---
EXAM DESCRIPTION: U/S ABDOMEN LIMITED W/O DOP COMPLETED DATE/TIME: 02/05/2019 11:08 am REASON FOR STUDY: effusion suspect ascites COMPARISON: None. TECHNIQUE: Dynamic and static grayscale images acquired of the abdomen and recorded on PACS. Additio nal selected color Doppler and spectral images recorded. LIMITATIONS: None. FINDINGS: PANCREAS: No masses. Visualized pancreatic duct normal caliber. LIVER: No masses. Echotexture normal. LIVER VASCULATURE: Normal directional flow of the main portal vein and hepatic veins. GALLBLADDER: No stones. Normal wall thickness. No pericholecystic fluid. ULTRASOUND-DETECTED LIAO'S SIGN: Negative. INTRAHEPATIC DUCTS AND COMMON DUCT: CBD and intrahepatic ducts normal caliber. No filling defects. INFERIOR VENA CAVA: Normal flow. AORTA: No aneurysm. RIGHT KIDNEY: No hydronephrosis. Cysts. The largest is 9 cm. PERITONEAL AND RIGHT PLEURAL SPACE: No effusions. OTHER: No other significant findings. IMPRESSION: No ascites. No other significant finding. TECHNICAL DOCUMENTATION: JOB ID: [id number] [employer]- All Rights Reserved Reading location - IP/workstation name: [email or web address]
[2019-02-05] MEDS ORDERED: METOPROLOL TARTRATE 25 MG TABLET ONE (16:46)
[2019-02-05] MEDS ORDERED: ACETAMINOPHEN 325 MG TABLET ONE (16:47)
[2019-02-05] MEDS ORDERED: METOPROLOL TARTRATE 25 MG TABLET PO ONE (17:00)
[2019-02-05] MEDS: LEVOFLOXACIN 500 MG TABLET PO SCH (17:58)
[2019-02-05] MEDS: ATORVASTATIN CALCIUM 40 MG TABLET PO SCH (21:35)
[2019-02-05] MEDS: ONDANSETRON HCL INJ/PF 4 MG/2 ML SDV IV PRN (21:35)
[2019-02-06] MEDS: LEVALBUTEROL HCL NEB 1.25 MG/3 ML AMPUL NEB SCH ×6 (00:16→20:13)
[2019-02-06] MEDS: INSULIN REG, HUMAN 100 UNIT/ML 3 ML VIAL (PYX) SUBCUT SCH ×4 (08:29→22:40)
[2019-02-06 08:41] LABS: ANION GAP 14 (5-19); BLOOD UREA NITROGEN 13 mg/dL (7-20); CALCIUM 9.4 mg/dL (8.4-10.2); CARBON DIOXIDE 36 mmol/L (22-30); CHLORIDE 90 mmol/L (98-107); GLUCOSE 152 mg/dL (75-110); SODIUM 139.6 mmol/L (137-145)
[2019-02-06 08:42] LABS: POTASSIUM 4.2 mmol/L (3.6-5.0)
[2019-02-06 10:34] LABS: INTERNATIONAL RATION (INR) 0.96; PROTHROMBIN TIME 13.2 SEC (11.4-15.4)
[2019-02-06] MEDS: DILTIAZEM HCL 120 MG CAP.SR.24H PO SCH (10:52)
[2019-02-06] MEDS: POTASSIUM CHLORIDE 10 MEQ CAPSULE.ER PO SCH (10:52)
[2019-02-06] MEDS: LUBIPROSTONE 24 MCG CAPSULE PO SCH ×2 (10:52→17:38)
[2019-02-06] MEDS: METOPROLOL TARTRATE 25 MG TABLET PO SCH ×2 (10:52→22:41)
[2019-02-06] MEDS: ISOSORBIDE MONONITRATE 30 MG TAB.ER.24H PO SCH (10:52)
[2019-02-06] MEDS: CYANOCOBALAMIN (VITAMIN B-12) 1,000 MCG TABLET PO SCH (10:52)
[2019-02-06] MEDS: ALLOPURINOL 300 MG TABLET PO SCH (10:52)
[2019-02-06] MEDS: FUROSEMIDE 40 MG TABLET PO SCH ×2 (10:52→17:38)
[2019-02-06] MEDS: ACETAMINOPHEN 325 MG TABLET PO PRN (17:38)
[2019-02-06] MEDS: LEVOFLOXACIN 500 MG TABLET PO SCH (17:38)
[2019-02-06] MEDS: ATORVASTATIN CALCIUM 40 MG TABLET PO SCH (22:40)
[2019-02-07] MEDS: LEVALBUTEROL HCL NEB 1.25 MG/3 ML AMPUL NEB SCH ×6 (00:07→21:23)
--- NOTE | 2019-02-07 08:17 | PDOC PROGRESS REPORT ---
Subjective Progress Note for:: 02/06/19 Subjective:: enema resulted Reason For Visit: R PLEURAL EFFUSION,CHEST ADENOPATHY,ESOPHAGEAL MAS Physical Exam Vital Signs: Temp Pulse Resp BP Pulse Ox 98.4 F 83 18 127/52 H 91 L 02/06/19 16:19 02/07/19 07:43 02/07/19 07:43 02/06/19 16:19 02/07/19 07:43 Intake & Output 02/06/19 02/07/19 02/08/19 07:59 07:59 07:59 Intake Total 965 100 Balance 965 100 Weight 215 lb 2.738 oz General appearance: PRESENT: no acute distress Respiratory exam: PRESENT: decreased breath sounds - R base Cardiovascular exam: PRESENT: irregular rhythm. ABSENT: diastolic murmur, systolic murmur GI/Abdominal exam: ABSENT: mass, organolmegaly, tenderness Extremities exam: ABSENT: pedal edema Neurological exam: PRESENT: oriented to situation Psychiatric exam: PRESENT: appropriate affect Results Laboratory Results: 02/02/19 12:39 02/06/19 07:34 02/06/19 07:34 Sodium 139.6 Potassium 4.2 Chloride 90 L Carbon Dioxide 36 H Anion Gap 14 BUN 13 Creatinine 0.78 Est GFR ( Amer) > 60 Est GFR (Non-Af Amer) > 60 Glucose 152 H Calcium 9.4 02/03/19 08:10 Sputum Gram Stain - Final 02/03/19 08:10 Sputum Sputum Culture - Final NORMAL PEDRO 02/02/19 02/02/19 12:39 12:39 Creatine Kinase 40 CK-MB (CK-2) 0.72 Troponin I 0.014 Impressions: Chest CT 02/02/19 13:54 IMPRESSION: 1. Moderate right-sided pleural effusion with compressive atelectasis of the right lower and right middle lobes. Focal, rounded consolidation involving the left lower lobe. Mediastinal lymphadenopathy. Differential considerations are broad to include both infectious and neoplastic causes. No evidence of pulmonary embolus. 2. Lobular soft tissue attenuation within the subcarinal posterior mediastinum is of uncertain etiology. However, this appears to be associated with the esophagus and may represent an esophageal diverticulum or mass. Abdomen Ultrasound 02/05/19 00:00 IMPRESSION: No ascites. No other significant finding. Chest X-Ray 02/05/19 00:00 IMPRESSION: Persistent right effusion. Interval development of vascular congestion. Assessment & Plan - Diagnosis (1) Pleural effusion on right Is this a current diagnosis for this admission?: Yes Plan: scheduled for chest tube on 6may 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 Is this a current diagnosis for this admission?: Yes (7) Other vitamin B12 deficiency anemias Is this a current diagnosis for this admission?: Yes (8) Type 2 diabetes mellitus without complications Qualifiers: Diabetes mellitus termite treater insulin use: with termite treater use Qualified Code(s): E11.9 - Type 2 diabetes mellitus without complications; Z79.4 - intermediate project manager (current) use of insulin Is this a current diagnosis for this admission?: Yes (9) Gastro-esophageal reflux disease without esophagitis Is this a current diagnosis for this admission?: Yes (10) Constipation Qualifiers: Constipation type: slow transit constipation Qualified Code(s): K59.01 - Slow transit constipation Is this a current diagnosis for this admission?: Yes - Inpatient Certification Medical Necessity: Failure to Improve With Outpatient Therapy, Significant Comorbidiites Make Outpatient Treatment Too Risky, Need Close Monitoring Due to Risk of Patient Decompensation, Need For Continuous Telemetry Monitoring, Need for Nebulizer Therapy and Monitoring of Response, Risk of Complication if Not Cared For in Hospital, Risk of Diagnosis Which Will Require Inpatient Eval/Care/Monitoring
--- NOTE | 2019-02-07 08:21 | PDOC PROGRESS REPORT ---
Subjective Progress Note for:: 02/07/19 Subjective:: still waiting for chest tube delayed by emegencies downstairs. Still constipated Reason For Visit: R PLEURAL EFFUSION,CHEST ADENOPATHY,ESOPHAGEAL MAS Physical Exam Vital Signs: Temp Pulse Resp BP Pulse Ox 98.4 F 83 18 127/52 H 91 L 02/06/19 16:19 02/07/19 07:43 02/07/19 07:43 02/06/19 16:19 02/07/19 07:43 Intake & Output 02/06/19 02/07/19 02/08/19 07:59 07:59 07:59 Intake Total 965 100 Balance 965 100 Weight 215 lb 2.738 oz General appearance: PRESENT: no acute distress Respiratory exam: PRESENT: decreased breath sounds - R base, wheezes - trace Cardiovascular exam: PRESENT: irregular rhythm. ABSENT: diastolic murmur, systolic murmur GI/Abdominal exam: ABSENT: tenderness Extremities exam: ABSENT: pedal edema Neurological exam: PRESENT: altered - confused last night not now Psychiatric exam: PRESENT: appropriate affect Results Laboratory Results: 02/02/19 12:39 02/06/19 07:34 02/03/19 08:10 Sputum Gram Stain - Final 02/03/19 08:10 Sputum Sputum Culture - Final NORMAL PEDRO Impressions: Chest CT 02/02/19 13:54 IMPRESSION: 1. Moderate right-sided pleural effusion with compressive atelectasis of the right lower and right middle lobes. Focal, rounded consolidation involving the left lower lobe. Mediastinal lymphadenopathy. Differential considerations are broad to include both infectious and neoplastic causes. No evidence of pulmonary embolus. 2. Lobular soft tissue attenuation within the subcarinal posterior mediastinum is of uncertain etiology. However, this appears to be associated with the esophagus and may represent an esophageal diverticulum or mass. Abdomen Ultrasound 02/05/19 00:00 IMPRESSION: No ascites. No other significant finding. Chest X-Ray 02/05/19 00:00 IMPRESSION: Persistent right effusion. Interval development of vascular congestion. Assessment & Plan - Diagnosis (1) Pleural effusion on right Is this a current diagnosis for this admission?: Yes Plan: US chest tube for diagnosis & relief 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 Is this a current diagnosis for this admission?: Yes (7) Other vitamin B12 deficiency anemias Is this a current diagnosis for this admission?: Yes (8) Type 2 diabetes mellitus without complications Qualifiers: Diabetes mellitus exterminator termite insulin use: with jail use Qualified Code(s): E11.9 - Type 2 diabetes mellitus without complications; Z79.4 - terminal operations manager (current) use of insulin Is this a current diagnosis for this admission?: Yes (9) Gastro-esophageal reflux disease without esophagitis Is this a current diagnosis for this admission?: Yes (10) Constipation Qualifiers: Constipation type: slow transit constipation Qualified Code(s): K59.01 - Slow transit constipation Is this a current diagnosis for this admission?: Yes Plan: add lactulose - Inpatient Certification Medical Necessity: Failure to Improve With Outpatient Therapy, Significant Comorbidiites Make Outpatient Treatment Too Risky, Need Close Monitoring Due to Risk of Patient Decompensation, Need For Continuous Telemetry Monitoring, Need for Nebulizer Therapy and Monitoring of Response, Need for Surgery, Risk of Co mplication if Not Cared For in Hospital, Risk of Diagnosis Which Will Require Inpatient Eval/Care/Monitoring
[2019-02-07] MEDS: INSULIN REG, HUMAN 100 UNIT/ML 3 ML VIAL (PYX) SUBCUT SCH ×3 (08:43→18:43)
[2019-02-07] MEDS: LUBIPROSTONE 24 MCG CAPSULE PO SCH ×2 (11:09→18:43)
[2019-02-07] MEDS: ACETAMINOPHEN 325 MG TABLET PO PRN (11:09)
[2019-02-07] MEDS: DILTIAZEM HCL 120 MG CAP.SR.24H PO SCH (11:10)
[2019-02-07] MEDS: CYANOCOBALAMIN (VITAMIN B-12) 1,000 MCG TABLET PO SCH (11:10)
[2019-02-07] MEDS: POTASSIUM CHLORIDE 10 MEQ CAPSULE.ER PO SCH (11:10)
[2019-02-07] MEDS: ISOSORBIDE MONONITRATE 30 MG TAB.ER.24H PO SCH (11:10)
[2019-02-07] MEDS: METOPROLOL TARTRATE 25 MG TABLET PO SCH ×2 (11:12→22:49)
[2019-02-07] MEDS: FUROSEMIDE 40 MG TABLET PO SCH ×2 (11:12→18:43)
[2019-02-07] MEDS: ALLOPURINOL 300 MG TABLET PO SCH (11:12)
[2019-02-07 11:43] LABS: FLUID APPEARANCE HAZY; FLUID COLOR YELLOW; FLUID SOURCE LUNG; FLUID TYPE PLEURAL; FLUID VISCOSITY LIQUID
--- NOTE | 2019-02-07 11:47 | RADIOLOGY REPORT (SQ) ---
EXAM DESCRIPTION: CHEST SINGLE VIEW COMPLETED DATE/TIME: 02/07/2019 10:01 am REASON FOR STUDY: S/P RT CHEST TUBE PLACEMENT COMPARISON: Two-view chest 02/05/2019 EXAM PARAMETERS: NUMBER OF VIEWS: One view. TECHNIQUE: Single frontal radiographic view of the chest acquired. RADIATION DOSE: NA LIMITATIONS: None. FINDINGS: LUNGS AND PLEURA: Trace right apical pneumothorax post placement of a right 8 Portuguese pleur al space pigtail catheter for drainage of pleural effusion. Moderate right pleural effusion persists. There is right lower lobe and right middle lobe collapse a nd consolidation. Minimal blunting left lateral costophrenic sulcus from trace left pleural effusion. No gross left in filtrates. No left pneumothorax. MEDIASTINUM AND HILAR STRUCTURES: No masses. Contour normal. HEART AND VASCULAR STRUCTURES: No cardiomegaly BONES: No acute findings. HARDWARE: None in the chest. OTHER: No other significant finding. IMPRESSION: Trace right apical pneumothorax immediately post right posterior pleural space pigtail c atheter placement for overnight drainage of right pleural effusion with Pleur-Evac. TECHNICAL DOCUMENTATION: JOB ID: [id number] [employer]- All Rights Reserved Reading location - IP/workstation name: [email or web address]
--- NOTE | 2019-02-07 11:56 | RADIOLOGY REPORT (SQ) ---
EXAM DESCRIPTION: U/S THORACENTESIS W/CHEST TUBE COMPLETED DATE/TIME: 02/07/2019 10:57 am REASON FOR STUDY: R effusion COMPARISON: Two-view chest 02/05/2019 CT chest 02/02/2019 FLUORO TIME: No fluoroscopy, ultrasound-guided right chest tube placement 1 ultrasound images saved to PACS. TECHNIQUE: Image guided chest tube placement using sterile technique. LIMITATIONS: None FINDINGS: After written consent was obtained and explaining the risks and benefits of conscious vincenzo tion , the patient was placed upright on the ultrasound gurney. A time out was then called for site verification. An entry site was then marked using ultrasound guidance. The posterior right wall was t hen prepped and draped in a sterile fashion. The site was then anesthetized using 6 ml of 1% lidocai ne solution. An 11 blade scalpel was used to make a small skin incision. A safety centesis needle/C T was advanced into the right posterior pleural space with prompt return of clear yellow fluid. The stylet was removed, and .038 guidewire was passed through the Ikem-F-Yuwjxorq catheter. An 8 Italian locking pigtail was placed over the guidewire into the posterior right pleural space. The catheter w as then attached to the collection device. The entry site was covered with a sterile bandage. Right chest tube will be placed to 20 cm of water suction. Post procedure chest x-ray dictated separately demonstrated no pneumothorax. Pleural fluid Specimens were sent to cytology IMPRESSION: SUCCESSFUL PLACEMENT OF A RIGHT SIDED CHEST TUBE USING ULTRASOUND GUIDANCE. Pleural fluid specimen was sent to cytology. COMMENT: Patient medication list reviewed: Yes- Quality ID# [id number]:Eligible professional attests to do cumenting in the medical record they obtained, updated, or reviewed the patient's current medications . Quality ID 145: Final reports for procedures using fluoroscopy that document radiation exposure susan david, or exposure time and number of fluorographic images (if radiation exposure indices are not avail able) TECHNICAL DOCUMENTATION: JOB ID: [id number] [employer]- All Rights Reserved rev Reading location - IP/workstation name: [email or web address]
--- NOTE | 2019-02-07 13:46 | RADIOLOGY REPORT (SQ) ---
EXAM DESCRIPTION: CHEST SINGLE VIEW COMPLETED DATE/TIME: 02/07/2019 12:38 pm REASON FOR STUDY: S/P RT CHEST TUBE PLACEMENT- 2 HOUR FILM COMPARISON: Chest films 02/07/2019, 02/05/2019, 02/02/2019 CT chest 02/02/2019 EXAM PARAMETERS: NUMBER OF VIEWS: One view. TECHNIQUE: Single frontal radiographic view of the chest acquired. RADIATION DOSE: NA LIMITATIONS: None. FINDINGS: LUNGS AND PLEURA: Right lower lateral pigtail catheter in place. Trace right apical pneum othorax. Significant decrease in right pleural effusion compared to previous studies. Minimal persi stent fluid in the right lateral costophrenic sulcus. There is patchy airspace disease in the right middle and lower lobe, atelectasis versus pneumonia. On the left side, trace fluid blunting the lateral costophrenic sulcus. No focal infiltrates or left pneumothorax. MEDIASTINUM AND HILAR STRUCTURES: No masses. Contour normal. HEART AND VASCULAR STRUCTURES: Moderate cardiomegaly BONES: No acute findings. HARDWARE: Right posterior pleural space 8 Kiswahili pigtail catheter OTHER: No other significant finding. IMPRESSION: Significant decrease in right pleural effusion Right lower pleural space pigtail catheter in place, trace right apical pneumothorax unchanged from e arlier today Persistent right middle and lower lobe consolidation atelectasis versus pneumonia TECHNICAL DOCUMENTATION: JOB ID: [id number] [employer]- All Rights Reserved Reading location - IP/workstation name: [email or web address]
[2019-02-07] MEDS: TRAMADOL HCL 50 MG TABLET PO PRN (13:51)
[2019-02-07] MEDS: LEVOFLOXACIN 500 MG TABLET PO SCH (18:43)
[2019-02-07] MEDS ORDERED: LACTULOSE SYRUP 20 GM/30 ML UDCUP PO SCH (22:00)
[2019-02-07] MEDS: ATORVASTATIN CALCIUM 40 MG TABLET PO SCH (22:49)
[2019-02-08] MEDS: LEVALBUTEROL HCL NEB 1.25 MG/3 ML AMPUL NEB SCH ×7 (00:03→23:45)
[2019-02-08] MEDS: INSULIN REG, HUMAN 100 UNIT/ML 3 ML VIAL (PYX) SUBCUT SCH (00:25)
[2019-02-08] MEDS: TRAMADOL HCL 50 MG TABLET PO PRN (03:11)
--- NOTE | 2019-02-08 08:45 | PDOC PROGRESS REPORT ---
Subjective Progress Note for:: 02/08/19 Subjective:: breathing much better after 1500ml thoracentesis. Daughters says minimal intake since before admission. Reason For Visit: R PLEURAL EFFUSION,CHEST ADENOPATHY,ESOPHAGEAL MAS Physical Exam Vital Signs: Temp Pulse Resp BP Pulse Ox 97.8 F 72 20 115/71 92 02/08/19 03:46 02/08/19 03:46 02/07/19 21:23 02/08/19 03:46 02/08/19 03:46 Intake & Output 02/07/19 02/08/19 02/09/19 07:59 07:59 07:59 Intake Total 100 Output Total 1890 Balance 100 -1890 Weight 215 lb 9.793 oz General appearance: PRESENT: no acute distress Respiratory exam: PRESENT: rhonchi - R Cardiovascular exam: ABSENT: diastolic murmur, irregular rhythm, systolic murmur GI/Abdominal exam: PRESENT: distended. ABSENT: mass, organolmegaly, tenderness Extremities exam: ABSENT: pedal edema Neurological exam: PRESENT: oriented to situation Psychiatric exam: PRESENT: appropriate affect Results Laboratory Results: 02/02/19 12:39 02/06/19 07:34 02/07/19 09:35 Fluid Type PLEURAL Fluid Source LUNG Fluid Color YELLOW Fluid Appearance HAZY Fluid Viscosity LIQUID Fluid WBC 2690 Fluid RBC 1280 02/02/19 18:53 Blood Blood Culture - Final NO GROWTH IN 5 DAYS 02/02/19 12:39 Blood Blood Culture - Final NO GROWTH IN 5 DAYS Impressions: Chest CT 02/02/19 13:54 IMPRESSION: 1. Moderate right-sided pleural effusion with compressive atelectasis of the right lower and right middle lobes. Focal, rounded co nsolidation involving the left lower lobe. Mediastinal lymphadenopathy. Differential considerations are broad to include both infectious and neoplastic causes. No evidence of pulmonary embolus. 2. Lobular soft tissue attenuation within the subcarinal posterior mediastinum is of uncertain etiology. However, this appears to be associated with the esophagus and may represent an esophageal diverticulum or mass. Abdomen Ultrasound 02/05/19 00:00 IMPRESSION: No ascites. No other significant finding. Thoracentesis Ultrasound 02/07/19 00:00 IMPRESSION: SUCCESSFUL PLACEMENT OF A RIGHT SIDED CHEST TUBE USING ULTRASOUND GUIDANCE. Pleural fluid specimen was sent to cytology. Assessment & Plan - Diagnosis (1) Pleural effusion on right Is this a current diagnosis for this admission?: Yes Plan: search for possible primary while we wait for cytology. BE 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 Is this a current diagnosis for this admission?: Yes (7) Other vitamin B12 deficiency anemias Is this a current diagnosis for this admission?: Yes (8) Type 2 diabetes mellitus without complications Qualifiers: Diabetes mellitus senior living insulin use: with senior living use Qualified Code(s): E11.9 - Type 2 diabetes mellitus without complications; Z79.4 - FPC (current) use of insulin Is this a current diagnosis for this admission?: Yes (9) Gastro-esophageal reflux disease without esophagitis Is this a current diagnosis for this admission?: Yes (10) Constipation Qualifiers: Constipation type: slow transit constipation Qualified Code(s): K59.01 - S low transit constipation Is this a current diagnosis for this admission?: Yes - Inpatient Certification Medical Necessity: Failure to Improve With Outpatient Therapy, Significant Comorbidiites Make Outpatient Treatment Too Risky, Need Close Monitoring Due to Risk of Patient Decompensation, Need For IV Fluids, Need For Continuous Telemetry Monitoring, Need for Pain Control, Risk of Complication if Not Cared For in Hospital, Risk of Diagnosis Which Will Require Inpatient Eval/Care/Monitoring
--- NOTE | 2019-02-08 08:58 | RADIOLOGY REPORT (SQ) ---
EXAM DESCRIPTION: CHEST SINGLE VIEW COMPLETED DATE/TIME: 02/08/2019 8:29 am REASON FOR STUDY: Chest tube COMPARISON: 02/07/2019 EXAM PARAMETERS: NUMBER OF VIEWS: One view. TECHNIQUE: Single frontal radiographic view of the chest acquired. RADIATION DOSE: NA LIMITATIONS: None. FINDINGS: LUNGS AND PLEURA: Persistent patchy right basilar and perihilar airspace disease with smal l right pleural effusion. Unchanged trace left pleural effusion with luminal left basilar atelectasi s. No appreciable pneumothorax. MEDIASTINUM AND HILAR STRUCTURES: No masses. Contour normal. HEART AND VASCULAR STRUCTURES: Stable. Aortic atherosclerosis. BONES: No acute bony abnormality. HARDWARE: Small bore right basilar chest tube, stable. OTHER: No other significant finding. IMPRESSION: Stable small bore right basilar chest tube with small residual effusion patchy airspace disease, likely atelectasis. TECHNICAL DOCUMENTATION: JOB ID: [id number] [employer]- All Rights Reserved Reading location - IP/workstation name: [email or web address]
[2019-02-08] MEDS ORDERED: MAGNESIUM CITRATE 296 ML BOTTLE PO ONE (09:30)
[2019-02-08] MEDS ORDERED: BISACODYL 10 MG SUPP.RECT PR ONE (09:30)
[2019-02-08] MEDS ORDERED: BISACODYL 5 MG TABEC PO ONE (09:30)
[2019-02-08] MEDS: ONDANSETRON HCL INJ/PF 4 MG/2 ML SDV IV PRN ×2 (10:38→17:49)
[2019-02-08 11:19] LABS: ANION GAP 12 (5-19); BLOOD UREA NITROGEN 21 mg/dL (7-20); CALCIUM 9.3 mg/dL (8.4-10.2); CARBON DIOXIDE 39 mmol/L (22-30); CHLORIDE 84 mmol/L (98-107); GLUCOSE 153 mg/dL (75-110); POTASSIUM 5.4 mmol/L (3.6-5.0); SODIUM 134.6 mmol/L (137-145)
[2019-02-08] MEDS: POTASSIUM CHLORIDE 10 MEQ CAPSULE.ER PO SCH (12:15)
[2019-02-08] MEDS: LUBIPROSTONE 24 MCG CAPSULE PO SCH (12:15)
[2019-02-08] MEDS: DILTIAZEM HCL 120 MG CAP.SR.24H PO SCH (12:16)
[2019-02-08] MEDS: FUROSEMIDE 40 MG TABLET PO SCH (12:16)
[2019-02-08] MEDS: ALLOPURINOL 300 MG TABLET PO SCH (12:16)
[2019-02-08] MEDS: ISOSORBIDE MONONITRATE 30 MG TAB.ER.24H PO SCH (12:16)
[2019-02-08] MEDS: CYANOCOBALAMIN (VITAMIN B-12) 1,000 MCG TABLET PO SCH (12:16)
[2019-02-08] MEDS: METOPROLOL TARTRATE 25 MG TABLET PO SCH ×2 (12:17→22:14)
--- NOTE | 2019-02-08 13:27 | RADIOLOGY REPORT (SQ) ---
EXAM DESCRIPTION: ABDOMEN 2 VIEWS COMPLETED DATE/TIME: 02/08/2019 1:15 pm REASON FOR STUDY: signs and symptoms of bowel obstruction COMPARISON: None. NUMBER OF VIEWS: Two views. TECHNIQUE: Supine and erect/decubitus radiographic images of the abdomen acquired. LIMITATIONS: None. FINDINGS: FREE AIR: None. No abnormal gas collections. LUNG BASES: Clear. BOWEL GAS PATTERN: There is considerable large bowel gas. There is a loop of sigmoid that is distend ed with air. The appearance of a loop raises possibility of sigmoid volvulus. CALCIFICATIONS: No suspicious calcifications. SOFT TISSUES: No gross mass or suggestion of organomegaly. HARDWARE: None in the abdomen. BONES: No acute fracture. No worrisome bone lesions. OTHER: No other significant finding. IMPRESSION: Cannot exclude sigmoid volvulus. TECHNICAL DOCUMENTATION: JOB ID: [id number] [employer]- All Rights Reserved Reading location - IP/workstation name: [email or web address]
--- NOTE | 2019-02-08 16:14 | RADIOLOGY REPORT (SQ) ---
EXAM DESCRIPTION: CT ABD/PELVIS WITH IV ONLY COMPLETED DATE/TIME: 02/08/2019 3:49 pm REASON FOR STUDY: chest adenopathy constipation COMPARISON: 02/08/2019 TECHNIQUE: CT scan of the abdomen and pelvis performed using helical scanning technique with dynamic intravenous contrast injection. No oral contrast. Images reviewed with lung, soft tissue, and bone windows. Reconstructed coronal and sagittal MPR images reviewed. Delayed images for evaluation of the urinary system also acquired. All images stored on PACS. All CT scanners at this facility use dose modulation, iterative reconstruction, and/or weight based d osing when appropriate to reduce radiation dose to as low as reasonably achievable (ALARA). [facility]: Dose Right [facility]: CareDose [facility]: Dose Right [facility]: Teradose 4D [facility]: Modustri CONTRAST TYPE AND DOSE: contrast/concentration: Isovue 350.00 mg/ml; Total Contrast Delivered: 100.0 ml; Total Saline Delivered: 69.1 ml RENAL FUNCTION: Creatinine 0.85 RADIATION DOSE: CT Rad equipment meets quality standard of care and radiation dose reduction techniq ues were employed. CTDIvol: 19.8 - 20.4 mGy. DLP: 2272 mGy-cm.. LIMITATIONS: None. FINDINGS: LOWER CHEST: Right basilar chest tubes in place without significant pneumothorax. Patchy right lower lobe airspace disease and consolidation. Minimal left basilar atelectasis. Scattered th ree-vessel coronary atherosclerosis. Again seen is the mediastinal adenopathy. Enlarged heart. LIVER: Normal size. No masses. No dilated ducts. SPLEEN: Normal size. No focal lesions. PANCREAS: No masses. No significant calcifications. No adjacent inflammation or peripancreatic fluid collections. Pancreatic duct not dilated. GALLBLADDER: No identified stones by CT criteria. No inflammatory changes to suggest cholecystitis. ADRENAL GLANDS: Bilateral nodular adrenal thickening. No discrete nodule or mass. RIGHT KIDNEY AND URETER: Right renal cysts, largest measuring up to 7.1 cm. No significant calcific ations. No hydronephrosis or hydroureter. LEFT KIDNEY AND URETER: No solid masses. Punctate nonobstructing stones. Scattered subcentimeter h ypodense lesion, likely cyst. No hydronephrosis or hydroureter. AORTA AND VESSELS: Aortic atherosclerosis. No aneurysm. Patent celiac, SMA, bilateral renals and IM A. RETROPERITONEUM: Shotty retroperitoneal lymph nodes without discrete adenopathy. Largest retrocaval node measures 6 mm in short axis. No discrete mass or hemorrhage. BOWEL AND PERITONEAL CAVITY: No evidence of bowel obstruction. No focal bowel wall thickening. Flui d levels in the transverse colon which can be seen with diarrheal illness or cathartic use. APPENDIX: Normal. PELVIS: No mass. No free fluid. Normal bladder. ABDOMINAL WALL: No masses. No hernias. BONES: No significant or acute findings. OTHER: Obesity. IMPRESSION: 1. No evidence of intestinal obstruction. Specifically no evidence of sigmoid volvulus . 2. Patchy right lower lobe airspace disease suspicious for pneumonia. Small bore right-sided chest tube without significant pleural effusion. Persistent mediastinal adenopathy. 3. Additional findings as above. TECHNICAL DOCUMENTATION: JOB ID: [id number] Quality ID # [id number]: Final reports with documentation of one or more dose reduction techniques (e.g., Au tomated exposure control, adjustment of the mA and/or kV according to patient size, use of iterative reconstruction technique) 2010 [email or web address]- All Rights Reserved Reading location - IP/workstation name: [email or web address]
[2019-02-08] MEDS: DEXTROSE 5%-1/4 NORMAL SALINE 1,000 ML IV PRN (17:28)
[2019-02-08] MEDS ORDERED: MINERAL OIL ENEMA 133 ML PR ONE (17:30)
[2019-02-08] MEDS ORDERED: GLYCERIN 99.5% (ANHYDROUS) 177 ML PR ONE (17:30)
--- NOTE | 2019-02-08 21:58 | PDOC CONSULTATION ---
Consultation Consult Date: 02/08/19 Consult reason:: Chronic constipation History of Present Illness Admission Date/PCP: 02/02/19 15:40 THOMAS GROVES Patient complains of: Constipation History of Present Illness: ZENAIDA MALHOTRA is a 83 year old female with a long history of chronic constipation. The patient reports that she has gone 14 days without having a bowel movement. The patient has to drink hot tea and take multiple laxatives (6 at a time) in order to have a bowel movement. The patient does this intermittently, and does not take anything on a daily basis. Patient's diet is reportedly low in fiber. The patient reports abdominal distention and cramping left lower quadrant abdominal pain. Her pain is severe at times (8 out of 10). Occasionally her pain radiates to her back. She does experience occasional nausea and vomiting. She denies fevers, chills, chest pain, headache, dizziness, blurry vision. She does report shortness of breath. Past Medical History Cardiac Medical History: Reports: Atrial Fibrillation, Congestive Heart Failure - chronic diastolic, Hyperlipidema, Hypertension Pulmonary Medical History: Reports: Chronic Obstructive Pulmonary Disease (COPD) EENT Medical History: Reports: None Neurological Medical History: Reports: None Endocrine Medical History: Reports: Diabetes Mellitus Type 1, Diabetes Mellitus Type 2, Obesity Renal/ Medical History: Reports: None Malignancy Medical History: Reports: None GI Medical History: Reports: Gastroesophageal Reflux Disease Musculoskeltal Medical History: Reports: Arthritis Skin Medical History: Reports: Psoriasis Psychiatric Medical History: Reports: Depression Hematology: Reports: Anemia - iron & b12 Infectious Medical History: Reports: None Past Surgical History Past Surgical History: Reports: Other - cataracts & L breast biopsy & cryo Social History Lives with: Family Smoking Status: Former Smoker - 1997 Number of Years Smokin Last Time Smoked: 1997 Frequency of Alcohol Use: None Hx Recreational Drug Use: No Drugs: None Hx Prescription Drug Abuse: No - Advance Directive Resuscitation Status: Full Code Family History Family History: CAD, CVA, DM, Hypertension, Malignancy Parental Family History Reviewed: Yes Children Family History Reviewed: Yes Sibling(s) Family History Reviewed.: Yes Medication/Allergy Home Medications: Albuterol Sulfate [Proair Hfa Inhalation Aerosol 8.5 gm Mdi] 2 puff IH Q6HP PRN 02/02/19 Allopurinol [Zyloprim] 300 mg PO DAILY 02/02/19 Atorvastatin Calcium [Lipitor 40 mg Tablet] 40 mg PO QHS 02/02/19 Cyanocobalamin (Vitamin B-12) [Vitamin B-12 1000 Mcg Tablet] 1,000 mcg PO DAILY 02/02/19 Dabigatran Etexilate Mesylate [Pradaxa 150 mg Capsule] 150 mg PO Q12 02/02/19 Diltiazem HCl [Cardizem La] 360 mg PO DAILY 02/02/19 Docusate Sodium [Colace 100 mg Capsule] 100 mg PO DAILY MDD 200 MG 02/02/19 Ferrous Sulfate [Iron] 325 mg PO DAILY 02/02/19 Fluticasone/Salmeterol [Advair 250-50 Diskus 14 Dose/Diskus] 1 puff IH Q12 02/02/19 Furosemide [Lasix] 40 mg PO BID 02/02/19 Insulin NPH Hum/Reg Insulin Hm [Humulin 70/30 Kwikpen] 35 unit SQ BID 02/02/19 Isosorbide Mononitrate [Imdur 30 mg Tablet.er] 30 mg PO DAILY 02/02/19 Metoprolol Tartrate [Lopressor 25 mg Tablet] 25 mg PO Q12 02/02/19 Omeprazole Magnesium [Prilosec Otc] 20 mg PO DAILY 02/02/19 Tiotropium [place] [Spiriva Handihaler 5 Cap/Kit (18 Mcg/Cap)] 1 cap IH DAILY 02/02/19 Allergies/Adverse Reactions: niacin [Niacin] Allergy (Verified 05/27/13 23:09) rash Penicillins Allergy (Verified 05/27/13 23:09) rash Review of Systems Constitutional: PRESENT: fatigue, fever(s), weakness. ABSENT: anorexia, chills Eyes: ABSENT: visual disturbances Ears: ABSENT: hearing changes Nose, Mouth, and Throat: ABSENT: sore throat Cardiovascular: PRESENT: dyspnea on exertion. ABSENT: chest pain Respiratory: PRESENT: cough, dyspnea Gastrointestinal: PRESENT: abdominal pain, bloating, constipation, nausea, vomiting. ABSENT: hematemesis, hematochezia, melena Genitourinary: ABSENT: dysuria Musculoskeletal: PRESENT: back pain - Occasional Integumentary: ABSENT: pruritus, rash Neurological: ABSENT: confusion, convulsions, dizziness Psychiatric: ABSENT: anxiety, depression Endocrine: ABSENT: cold intolerance, heat intolerance Hematologic/Lymphatic: ABSENT: easy bleeding, easy bruising Physical Exam Vital Signs: Temp Pulse Resp BP Pulse Ox 97.8 F 89 20 145/79 H 91 L 02/08/19 12:40 02/08/19 16:01 02/08/19 16:01 02/08/19 12:40 02/08/19 16:01 Intake & Output 02/07/19 02/08/19 02/09/19 06:59 06:59 06:59 Intake Total 100 591 Output Total 1890 230 Balance 100 -1890 361 Weight 97.8 kg 97.8 kg General appearance: PRESENT: obese Head exam: PRESENT: atraumatic, normocephalic Eye exam: PRESENT: EOMI, PERRLA. ABSENT: scleral icterus Mouth exam: PRESENT: moist, neck supple Neck exam: ABSENT: meningismus, tenderness, thyromegaly, tracheal deviation Respiratory exam: PRESENT: rales, rhonchi, tachypnea, wheezes Cardiovascular exam: PRESENT: RRR Pulses: PRESENT: normal radial pulses Vascular exam: PRESENT: normal capillary refill. ABSENT: pallor GI/Abdominal exam: PRESENT: distended - Mild, soft. ABSENT: hernia, rebound, rigid, tenderness Rectal exam: PRESENT: deferred Neurological exam: PRESENT: alert, awake, oriented to person, oriented to place, oriented to time, oriented to situation Psychiatric exam: ABSENT: agitated, anxious, depressed Focused psych exam: ABSENT: delusional Skin exam: ABSENT: cyanosis, erythema, jaundice Results Laboratory Results: 02/02/19 12:39 02/08/19 10:41 02/08/19 10:41 Sodium 134.6 L Potassium 5.4 H Chloride 84 L Carbon Dioxide 39 H Anion Gap 12 BUN 21 H Creatinine 0.85 Est GFR ( Amer) > 60 Est GFR (Non-Af Amer) > 60 Glucose 153 H Calcium 9.3 02/02/19 18:53 Blood Blood Culture - Final NO GROWTH IN 5 DAYS 02/02/19 12:39 Blood Blood Culture - Final NO GROWTH IN 5 DAYS 02/02/19 02/02/19 12:39 12:39 Creatine Kinase 40 CK-MB (CK-2) 0.72 Troponin I 0.014 Impressions: Chest CT 02/02/19 13:54 IMPRESSION: 1. Moderate right-sided pleural effusion with compressive atelectasis of the right lower and right middle lobes. Focal, rounded consol idation involving the left lower lobe. Mediastinal lymphadenopathy. Differential considerations are broad to include both infectious and neoplastic causes. No evidence of pulmonary embolus. 2. Lobular soft tissue attenuation within the subcarinal posterior mediastinum is of uncertain etiology. However, this appears to be associated with the esophagus and may represent an esophageal diverticulum or mass. Abdomen Ultrasound 02/05/19 00:00 IMPRESSION: No ascites. No other significant finding. Thoracentesis Ultrasound 02/07/19 00:00 IMPRESSION: SUCCESSFUL PLACEMENT OF A RIGHT SIDED CHEST TUBE USING ULTRASOUND GUIDANCE. Pleural fluid specimen was sent to cytology. Abdomen X-Ray 02/08/19 00:00 IMPRESSION: Cannot exclude sigmoid volvulus. Abdomen/Pelvis CT 02/08/19 00:00 IMPRESSION: 1. No evidence of intestinal obstruction. Specifically no evidence of sigmoid volvulus. 2. Patchy right lower lobe airspace disease suspicious for pneumonia. Small bore right-sided chest tube without significant pleural effusion. Persistent mediastinal adenopathy. 3. Additional findings as above. Chest X-Ray 02/08/19 06:00 IMPRESSION: Stable small bore right basilar chest tube with small residual effusion patchy airspace disease, likely atelectasis. Assessment & Plan - Diagnosis (1) Constipation Qualifiers: Constipation type: slow transit constipation Qualified Code(s): K59.01 - Slow transit constipation Is this a current diagnosis for this admission?: Yes - Plan Summary Plan Summary: This is an 83-year-old female with a long history of chronic constipation. The patient reports that her last bowel movement was 14 days ago. She denies significant abdominal pain. The patient was given several cathartics today without result. Earlier, I ordered a peroxide/mineral oil/glycerin enema, which had moderate results. The patient is feeling better. She reports that she is less distended. She has no abdominal pain at present. I have reviewed the patient's CT scan. I do not see any evidence for inflammation, obstruction, volvulus, or other significant intra-abdominal pathology. She does have a large amount of hard stool in the splenic flexure. I have made several recommendations for the patient. She should start a fiber supplement twice daily. She should also use stool softeners twice daily. She is to stop taking stimulant laxatives altogether. If she cannot achieve a bowel movement every day or every other day, she may require prescription medications (Linzess, Amitiza, or lactulose). I will repeat her x-rays tomorrow to evaluate her bowel gas pattern. I do not believe that surgical intervention will be necessary in this patient. Will follow.
[2019-02-08] MEDS: ACETAMINOPHEN 325 MG TABLET PO PRN (22:14)
[2019-02-08] MEDS: DOCUSATE SODIUM 100 MG CAPSULE PO SCH (22:15)
[2019-02-08] MEDS ORDERED: INSULIN REG, HUMAN 100 UNIT/ML 3 ML VIAL (PYX) SUBCUT ONE (23:00)
[2019-02-09] MEDS: DEXTROSE 5%-1/4 NORMAL SALINE 1,000 ML IV PRN (01:55)
[2019-02-09] MEDS: ONDANSETRON HCL INJ/PF 4 MG/2 ML SDV IV PRN (01:57)
[2019-02-09] MEDS: LEVALBUTEROL HCL NEB 1.25 MG/3 ML AMPUL NEB SCH ×6 (03:40→23:24)
--- NOTE | 2019-02-09 07:20 | PDOC PROGRESS REPORT ---
Subjective Progress Note for:: 02/09/19 Subjective:: passed big stool. Bled transiently. Dyspnea improved. Reason For Visit: R PLEURAL EFFUSION,CHEST ADENOPATHY,ESOPHAGEAL MAS Physical Exam Vital Signs: Temp Pulse Resp BP Pulse Ox 97.5 F 81 18 126/59 H 95 02/09/19 00:27 02/09/19 03:40 02/09/19 03:40 02/09/19 00:27 02/09/19 03:40 Intake & Output 02/07/19 02/08/19 02/09/19 07:59 07:59 07:59 Intake Total 100 1591 Output Total 1890 610 Balance 100 -1890 981 Weight 215 lb 9.793 oz 216 lb 14.958 oz General appearance: PRESENT: no acute distress Respiratory exam: PRESENT: rhonchi, wheezes Cardiovascular exam: PRESENT: irregular rhythm. ABSENT: diastolic murmur, systolic murmur GI/Abdominal exam: ABSENT: distended, mass, organolmegaly, tenderness Extremities exam: ABSENT: pedal edema Neurological exam: PRESENT: altered - drowsy. Confused all night. Psychiatric exam: PRESENT: appropriate affect Results Laboratory Results: 02/02/19 12:39 02/08/19 10:41 02/08/19 10:41 Sodium 134.6 L Potassium 5.4 H Chloride 84 L Carbon Dioxide 39 H Anion Gap 12 BUN 21 H Creatinine 0.85 Est GFR ( Amer) > 60 Est GFR (Non-Af Amer) > 60 Glucose 153 H Calcium 9.3 Impressions: Chest CT 02/02/19 13:54 IMPRESSION: 1. Moderate right-sided pleural effusion with compressive atel ectasis of the right lower and right middle lobes. Focal, rounded consolidation involving the left lower lobe. Mediastinal lymphadenopathy. Differential considerations are broad to include both infectious and neoplastic causes. No evidence of pulmonary embolus. 2. Lobular soft tissue attenuation within the subcarinal posterior mediastinum is of uncertain etiology. However, this appears to be associated with the esophagus and may represent an esophageal diverticulum or mass. Abdomen Ultrasound 02/05/19 00:00 IMPRESSION: No ascites. No other significant finding. Thoracentesis Ultrasound 02/07/19 00:00 IMPRESSION: SUCCESSFUL PLACEMENT OF A RIGHT SIDED CHEST TUBE USING ULTRASOUND GUIDANCE. Pleural fluid specimen was sent to cytology. Abdomen X-Ray 02/08/19 00:00 IMPRESSION: Cannot exclude sigmoid volvulus. Abdomen/Pelvis CT 02/08/19 00:00 IMPRESSION: 1. No evidence of intestinal obstruction. Specifically no evidence of sigmoid volvulus. 2. Patchy right lower lobe airspace disease suspicious for pneumonia. Small bore right-sided chest tube without significant pleural effusion. Persistent mediastinal adenopathy. 3. Additional findings as above. Chest X-Ray 02/08/19 06:00 IMPRESSION: Stable small bore right basilar chest tube with small residual effusion patchy airspace disease, likely atelectasis. Assessment & Plan - Diagnosis (1) Pleural effusion on right Is this a current diagnosis for this admission?: Yes Plan: cytology suspicious for adenocarcinoma of lung. Cells were too old for full battery of stains to be certain. Dr Watt suggested pulling chest tube and retapping next week for new cells. She is considering all options: tap biopsy [facility] hospice. Consulted oncology. 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 Is this a current diagnosis for this admission?: Yes (7) Other vitamin B12 deficiency anemias Is this a current diagnosis for this admission?: Yes (8) Type 2 diabetes mellitus without complications Qualifiers: Diabetes mellitus ferry terminal agent insulin use: with prison use Qualified Code(s): E11.9 - Type 2 diabetes mellitus without complications; Z79.4 - 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 Although xray found sigmoid volvulus, ct did not. She did have large block of stool in splenic flexure. Although BE is ordered, it could be cancelled since adenopathy begins in chest - Inpatient Certification Medical Necessity: Failure to Improve With Outpatient Therapy, Significant Comorbidiites Make Outpatient Treatment Too Risky, Need Close Monitoring Due to Risk of Patient Decompensation, Need For IV Fluids, Need For Continuous Telemetry Monitoring, Need for Nebulizer Therapy and Monitoring of Response, Risk of Complication if Not Cared For in Hospital, Risk of Diagnosis Which Will Require Inpatient Eval/Care/Monitoring
[2019-02-09] MEDS ORDERED: INSULIN REG, HUMAN 100 UNIT/ML 3 ML VIAL (PYX) SUBCUT SCH (08:00)
--- NOTE | 2019-02-09 09:14 | RADIOLOGY REPORT (SQ) ---
EXAM DESCRIPTION: CHEST SINGLE VIEW COMPLETED DATE/TIME: 02/09/2019 9:05 am REASON FOR STUDY: Chest tube COMPARISON: CT chest 02/02/2019 Chest films 03/09/2017, 02/05/2019, 02/07/2019, 02/08/2019 EXAM PARAMETERS: NUMBER OF VIEWS: One view. TECHNIQUE: Single frontal radiographic view of the chest acquired. RADIATION DOSE: NA LIMITATIONS: None. FINDINGS: LUNGS AND PLEURA: Right posterior pleural space pigtail catheter has been removed. No pne umothorax. There is patchy consolidation in the right middle and lower lobe, atelectasis versus edema versus pne umonia. There is minimal blunting of the left lateral costophrenic sulcus from trace fluid, stable. No left- sided infiltrates. No left pneumothorax. MEDIASTINUM AND HILAR STRUCTURES: No masses. Contour normal. HEART AND VASCULAR STRUCTURES: Heart normal in size. Normal vasculature. BONES: No acute findings. HARDWARE: None in the chest. OTHER: No other significant finding. IMPRESSION: Post removal right chest tube without pneumothorax. Persistent right middle and lower lobe consolidation atelectasis versus pneumonia. TECHNICAL DOCUMENTATION: JOB ID: [id number]- All Rights Reserved Reading location - IP/workstation name: [email or web address]
--- NOTE | 2019-02-09 09:19 | RADIOLOGY REPORT (SQ) ---
EXAM DESCRIPTION: KUB/ABDOMEN (SINGLE VIEW) COMPLETED DATE/TIME: 02/09/2019 9:05 am REASON FOR STUDY: constipation COMPARISON: Abdominal films 02/08/2019 CT abdomen pelvis 02/08/2019 NUMBER OF VIEWS: One view. TECHNIQUE: Supine radiographic image of the abdomen acquired. LIMITATIONS: None. FINDINGS: BOWEL GAS PATTERN: Grossly normal bowel gas pattern. No plain film evidence for colon vol vulus. CALCIFICATIONS: No suspicious calcifications. SOFT TISSUES: There is contrast in the urinary bladder from CT exam yesterday. HARDWARE: None in the abdomen. BONES: No acute fracture. No worrisome bone lesions. OTHER: Right basilar consolidation atelectasis versus pneumonia. Right pleural space pigtail cathete r has been removed. IMPRESSION: Nonobstructive bowel gas pattern. Right basilar airspace disease, atelectasis versus pneumonia. Right basilar pleural space pigtail ca theter has been removed TECHNICAL DOCUMENTATION: JOB ID: [id number] [employer]- All Rights Reserved Reading location - IP/workstation name: [email or web address]
[2019-02-09 11:11] LABS: ANION GAP 11 (5-19); BLOOD UREA NITROGEN 17 mg/dL (7-20); CALCIUM 8.9 mg/dL (8.4-10.2); CARBON DIOXIDE 37 mmol/L (22-30); CHLORIDE 81 mmol/L (98-107); GLUCOSE 141 mg/dL (75-110); POTASSIUM 4.5 mmol/L (3.6-5.0); SODIUM 128.5 mmol/L (137-145)
[2019-02-09] MEDS: DOCUSATE SODIUM 100 MG CAPSULE PO SCH ×2 (11:11→17:32)
[2019-02-09] MEDS: PSYLLIUM SEED-SF 5.85 GM PACKET PO SCH ×2 (11:11→17:32)
[2019-02-09] MEDS: METOPROLOL TARTRATE 25 MG TABLET PO SCH ×2 (11:11→22:28)
[2019-02-09] MEDS: DILTIAZEM HCL 120 MG CAP.SR.24H PO SCH (11:12)
[2019-02-09] MEDS: ALLOPURINOL 300 MG TABLET PO SCH (11:12)
--- NOTE | 2019-02-09 12:16 | PDOC CONSULTATION ---
Consultation Consult Date: 02/09/19 Consult reason:: Hematology/Oncology consultation was requested for patient with new malignant pleural effusion and no known primary. History of Present Illness Admission Date/PCP: 02/02/19 15:40 THOMAS GROVES History of Present Illness: ZENAIDA MALHOTRA is a 83 year old female who follows with Dr. Giron. She states that she began having some dyspnea about 7 weeks ago. It did not improve and she presented for treatment and was found to have a large pleural effusion. She now has a chest tube in place and is feeling better. She had a prolonged bout of Arthritis in Nov but this is now better. She denies any recent swallowing problems and has always had difficulty with constipation. Some indigestion recently. No other complaints voiced today. Past Medical History Cardiac Medical History: Reports: Atrial Fibrillation, Congestive Heart Failure - chronic diastolic, Hyperlipidema, Hypertension Pulmonary Medical History: Reports: Chronic Obstructive Pulmonary Disease (COPD) EENT Medical History: Reports: None Neurological Medical History: Reports: None Endocrine Medical History: Reports: Diabetes Mellitus Type 1, Diabetes Mellitus Type 2, Obesity Renal/ Medical History: Reports: None Malignancy Medical History: Reports: None GI Medical History: Reports: Gastroesophageal Reflux Disease Musculoskeltal Medical History: Reports: Arthritis Skin Medical History: Reports: Psoriasis Psychiatric Medical History: Reports: Depression Hematology: Reports: Anemia - iron & b12 Infectious Medical History: Reports: None Past Surgical History Past Surgical History: Reports: Other - cataracts & L breast biopsy & cryo Social History Lives with: Family Smoking Status: Former Smoker - 1997 Number of Years Smokin Last Time Smoked: 1997 Frequency of Alcohol Use: None Hx Recreational Drug Use: No Drugs: None Hx Prescription Drug Abuse: No - Advance Directive Resuscitation Status: Full Code Family History Family History: CAD, CVA, DM, Hypertension, Malignancy Parental Family History Reviewed: Yes - Mom age 73 of an MD. Father age 64 with CVA. Children Family History Reviewed: Yes Sibling(s) Family History Reviewed.: Yes - Sister colon cancer. another sister gall bladder cancer. Medication/Allergy Home Medications: Albuterol Sulfate [Proair Hfa Inhalation Aerosol 8.5 gm Mdi] 2 puff IH Q6HP PRN 02/02/19 Allopurinol [Zyloprim] 300 mg PO DAILY 02/02/19 Atorvastatin Calcium [Lipitor 40 mg Tablet] 40 mg PO QHS 02/02/19 Cyanocobalamin (Vitamin B-12) [Vitamin B-12 1000 Mcg Tablet] 1,000 mcg PO DAILY 02/02/19 Dabigatran Etexilate Mesylate [Pradaxa 150 mg Capsule] 150 mg PO Q12 02/02/19 Diltiazem HCl [Cardizem La] 360 mg PO DAILY 02/02/19 Docusate Sodium [Colace 100 mg Capsule] 100 mg PO DAILY MDD 200 MG 02/02/19 Ferrous Sulfate [Iron] 325 mg PO DAILY 02/02/19 Fluticasone/Salmeterol [Advair 250-50 Diskus 14 Dose/Diskus] 1 puff IH Q12 02/02/19 Furosemide [Lasix] 40 mg PO BID 02/02/19 Insulin NPH Hum/Reg Insulin Hm [Humulin 70/30 Kwikpen] 35 unit SQ BID 02/02/19 Isosorbide Mononitrate [Imdur 30 mg Tablet.er] 30 mg PO DAILY 02/02/19 Metoprolol Tartrate [Lopressor 25 mg Tablet] 25 mg PO Q12 02/02/19 Omeprazole Magnesium [Prilosec Otc] 20 mg PO DAILY 02/02/19 Tiotropium [place] [Spiriva Handihaler 5 Cap/Kit (18 Mcg/Cap)] 1 cap IH DAILY 0 02/02/19 Allergies/Adverse Reactions: niacin [Niacin] Allergy (Verified 05/27/13 23:09) rash Penicillins Allergy (Verified 05/27/13 23:09) rash Review of Systems Constitutional: ABSENT: fever(s), headache(s) Eyes: ABSENT: visual disturbances Ears: ABSENT: hearing changes Nose, Mouth, and Throat: ABSENT: sore throat Cardiovascular: PRESENT: dyspnea on exertion. ABSENT: chest pain Respiratory: PRESENT: dyspnea Gastrointestinal: PRESENT: heartburn Genitourinary: ABSENT: dysuria Musculoskeletal: PRESENT: as per HPI Integumentary: ABSENT: rash Neurological: ABSENT: confusion Hematologic/Lymphatic: ABSENT: lymphadenopathy Physical Exam Vital Signs: Temp Pulse Resp BP Pulse Ox 97.5 F 81 18 126/59 H 95 02/09/19 00:27 02/09/19 03:40 02/09/19 03:40 02/09/19 00:27 02/09/19 03:40 Intake & Output 02/08/19 02/09/19 02/10/19 06:59 06:59 06:59 Intake Total 1591 1000 Output Total 1890 460 150 Balance -1890 1131 850 Weight 97.8 kg 98.4 kg General appearance: PRESENT: no acute distress, well-developed, well-nourished Head exam: PRESENT: normocephalic Eye exam: PRESENT: EOMI, PERRLA Mouth exam: PRESENT: tongue midline Neck exam: ABSENT: lymphadenopathy, tenderness Respiratory exam: PRESENT: clear to auscultation earnest, unlabored Cardiovascular exam: PRESENT: RRR GI/Abdominal exam: PRESENT: soft. ABSENT: organolmegaly, tenderness Extremities exam: ABSENT: pedal edema Musculoskeletal exam: PRESENT: ambulatory Neurological exam: PRESENT: alert, awake Psychiatric exam: PRESENT: appropriate affect Skin exam: PRESENT: normal color Results Laboratory Results: 02/02/19 12:39 02/09/19 10:14 02/09/19 10:14 Sodium 128.5 L Potassium 4.5 Chloride 81 L Carbon Dioxide 37 H Anion Gap 11 BUN 17 Creatinine 0.65 Est GFR ( Amer) > 60 Est GFR (Non-Af Amer) > 60 Glucose 141 H Calcium 8.9 02/02/19 02/02/19 12:39 12:39 Creatine Kinase 40 CK-MB (CK-2) 0.72 Troponin I 0.014 Impressions: Chest CT 02/02/19 13:54 IMPRESSION: 1. Moderate right-sided pleural effusion with compressive atelectasis of the right lower and right middle lobes. Focal, rounded consolidation involving the left lower lobe. Mediastinal lymphadenopathy. Differential considerations are broad to include both infectious and neoplastic causes. No evidence of pulmonary embolus. 2. Lobular soft tissue attenuation within the subcarinal posterior mediastinum is of uncertain etiology. However, this appears to be associated with the esophagus and may represent an esophageal diverticulum or mass. Abdomen Ultrasound 02/05/19 00:00 IMPRESSION: No ascites. No other significant finding. Thoracentesis Ultrasound 02/07/19 00:00 IMPRESSION: SUCCESSFUL PLACEMENT OF A RIGHT SIDED CHEST TUBE USING ULTRASOUND GUIDANCE. Pleural fluid specimen was sent to cytology. Abdomen X-Ray 02/08/19 00:00 IMPRESSION: Cannot exclude sigmoid volvulus. Abdomen/Pelvis CT 02/08/19 00:00 IMPRESSION: 1. No evidence of intestinal obstruction. Specifically no evidence of sigmoid volvulus. 2. Patchy right lower lobe airspace disease suspicious for pneumonia. Small bore right-sided chest tube without significant pleural effusion. Persistent mediastinal adenopathy. 3. Additional findings as above. KUB X-Ray 02/09/19 00:00 IMPRESSION: Nonobstructive bowel gas pattern. Right basilar airspace disease, atelectasis versus pneumonia. Right basilar pleural space pigtail catheter has been removed Chest X-Ray 02/09/19 06:00 IMPRESSION: Post removal right chest tube without pneumothorax. Persistent right middle and lower lobe consolidation atelectasis versus pneumonia. Status: Image reviewed by me Assessment & Plan - Diagnosis (1) Pleural effusion on right Is this a current diagnosis for this admission?: Yes Plan: Fluid is highly suggestive of malignant cells. Unknown primary. I discussed this with her in detail. Because of the esophageal thickening, I believe that EGD and colonoscopy would be recommended to search for the primary. We could also consider PET/CT after discharge. However, patient states that she does not wish to have any further testing and has requested Hospice services. She is familiar with Hospice due to her . She would like to continue to see Dr. Giron while on Hospice and has requested that he arrange this for her. - Plan Summary Plan Summary: I discussed her care with Dr. Giron. He is in agreement with Hospice services and will discharge her within the next 24 hours. I am available as needed.
[2019-02-09] MEDS: ACETAMINOPHEN 325 MG TABLET PO PRN (15:29)
--- NOTE | 2019-02-09 17:45 | PDOC PROGRESS REPORT ---
Subjective Progress Note for:: 02/09/19 Subjective:: Constipation appears resolved with Enemas Reason For Visit: R PLEURAL EFFUSION,CHEST ADENOPATHY,ESOPHAGEAL MAS Physical Exam Vital Signs: Temp Pulse Resp BP Pulse Ox 97.4 F 81 22 H 143/70 H 92 02/09/19 11:12 02/09/19 16:46 02/09/19 16:46 02/09/19 11:12 02/09/19 16:46 Intake & Output 02/08/19 02/09/19 02/10/19 06:59 06:59 06:59 Intake Total 1591 1000 Output Total 1890 460 150 Balance -1890 1131 850 Weight 97.8 kg 98.4 kg Exam: abdomen is soft and non tender Results Laboratory Results: 02/02/19 12:39 02/09/19 10:14 02/09/19 10:14 Sodium 128.5 L Potassium 4.5 Chloride 81 L Carbon Dioxide 37 H Anion Gap 11 BUN 17 Creatinine 0.65 Est GFR ( Amer) > 60 Est GFR (Non-Af Amer) > 60 Glucose 141 H Calcium 8.9 02/07/19 09:35 Pleural Fluid - Right Pleural Effusion Fungal Smear - Final 02/07/19 09:35 Pleural Fluid - Right Pleural Effusion Fungal Smear - Final 02/02/19 02/02/19 12:39 12:39 Creatine Kinase 40 CK-MB (CK-2) 0.72 Troponin I 0.014 Impressions: Chest CT 02/02/19 13:54 IMPRESSION: 1. Moderate right-sided pleural effusion with compressive atelectasis of the right lower and right middle lobes. Focal, rounded consol idation involving the left lower lobe. Mediastinal lymphadenopathy. Differential considerations are broad to include both infectious and neoplastic causes. No evidence of pulmonary embolus. 2. Lobular soft tissue attenuation within the subcarinal posterior mediastinum is of uncertain etiology. However, this appears to be associated with the esophagus and may represent an esophageal diverticulum or mass. Abdomen Ultrasound 02/05/19 00:00 IMPRESSION: No ascites. No other significant finding. Thoracentesis Ultrasound 02/07/19 00:00 IMPRESSION: SUCCESSFUL PLACEMENT OF A RIGHT SIDED CHEST TUBE USING ULTRASOUND GUIDANCE. Pleural fluid specimen was sent to cytology. Abdomen X-Ray 02/08/19 00:00 IMPRESSION: Cannot exclude sigmoid volvulus. Abdomen/Pelvis CT 02/08/19 00:00 IMPRESSION: 1. No evidence of intestinal obstruction. Specifically no evidence of sigmoid volvulus. 2. Patchy right lower lobe airspace disease suspicious for pneumonia. Small bore right-sided chest tube without significant pleural effusion. Persistent mediastinal adenopathy. 3. Additional findings as above. KUB X-Ray 02/09/19 00:00 IMPRESSION: Nonobstructive bowel gas pattern. Right basilar airspace disease, atelectasis versus pneumonia. Right basilar pleural space pigtail catheter has been removed Chest X-Ray 02/09/19 06:00 IMPRESSION: Post removal right chest tube without pneumothorax. Persistent right middle and lower lobe consolidation atelectasis versus pneumonia. Assessment & Plan - Time Time Spent with patient: 15-24 minutes - Plan Summary Plan Summary: Asked by Dr Fisher to D/C right small chest tube for effusion since not draining and effusion appears resolved. Chest tube pulled out and vaseline gauze dressing placed. Instructed family to remove dressing in 2-3 days and leave to open air.
[2019-02-10] MEDS: LEVALBUTEROL HCL NEB 1.25 MG/3 ML AMPUL NEB SCH ×4 (03:55→16:13)
--- NOTE | 2019-02-10 07:03 | PDOC DISCHARGE SUMMARY ---
General - Admit/Disc Date/PCP Admission Date/Primary Care Provider: 02/02/19 15:40 THOMAS GROVES Discharge Date: 02/10/19 - Discharge Diagnosis (1) Cancer of right lung Is this a current diagnosis for this admission?: Yes (2) Pleural effusion on right Is this a current diagnosis for this admission?: Yes (3) Acute exacerbation of chronic bronchitis Is this a current diagnosis for this admission?: Yes (4) Panlobular emphysema Is this a current diagnosis for this admission?: Yes (5) Chronic diastolic heart failure Is this a current diagnosis for this admission?: Yes (6) Afib Is this a current diagnosis for this admission?: Yes (7) Idiopathic chronic gout of multiple sites without tophus Is this a current diagnosis for this admission?: Yes (8) Other vitamin B12 deficiency anemias Is this a current diagnosis for this admission?: Yes (9) Type 2 diabetes mellitus without complications Is this a current diagnosis for this admission?: Yes (10) Gastro-esophageal reflux disease without esophagitis Is this a current diagnosis for this admission?: Yes (11) Constipation Is this a current diagnosis for this admission?: Yes - Additional Information Resuscitation Status: Full Code Discharge Diet: As Tolerated Discharge Activity: Activity As Tolerated Prescriptions: Docusate Sodium [Colace 100 mg Capsule] 200 mg PO DAILY #180 capsule Psyllium Seed [Metamucil-Sf Powder 5.85 gm Packet] 1 packet PO BID #180 packet Home Medications: Albuterol Sulfate [Proair HFA Inhalation Aerosol 8.5 gm MDI] 2 puff IH Q6HP PRN 02/02/19 Allopurinol [Zyloprim] 300 mg PO DAILY 02/02/19 Diltiazem HCl [Cardizem LA] 360 mg PO DAILY 02/02/19 Fluticasone/Salmeterol [Advair 250-50 Diskus 14 Dose/Diskus] 1 puff IH Q12 02/02/19 Metoprolol Tartrate [Lopressor 25 mg Tablet] 25 mg PO Q12 02/02/19 Omeprazole Magnesium [Prilosec Otc] 20 mg PO DAILY 02/02/19 Tiotropium [place] [Spiriva Handihaler 5 Cap/Kit (18 Mcg/Cap)] 1 cap IH DAILY 02/02/19 Docusate Sodium [Colace 100 mg Capsule] 200 mg PO DAILY #180 capsule 02/10/19 Metoprolol Tartrate [Lopressor 25 mg Tablet] 25 mg PO Q12 tablet 02/10/19 Psyllium Seed [Metamucil-Sf Powder 5.85 gm Packet] 1 packet PO BID #180 packet 02/10/19 History of Present Illness Patient complains of: dyspnea History of Present Illness: ZENAIDA MALHOTRA is a 83 year old female with chronic but progressive dyspnea. Today daughter said sat89. No home oxygen. Hospital Course Hospital Course: After pradaxa excreted, R chest tube yielded about 2L yellow fluid with 91% lymphs. Dyspnea improved. Although cells were scant and old, stains were highly suggestive of adenocarcinoma of lung. Immunostains could not be run. After speaking with Dr Richardson, she elected hospice care at home. Constipation finally improved finally after lots of laxitives. Intake remained minimal. Physical Exam Vital Signs: Temp Pulse Resp BP Pulse Ox 98.3 F 91 17 107/93 H 90 L 02/09/19 20:48 02/10/19 01:59 02/09/19 23:27 02/09/19 20:48 02/09/19 23:27 Intake & Output 02/08/19 02/09/19 02/10/19 07:59 07:59 07:59 Intake Total 1591 1222 Output Total 1890 610 Balance -9997 165 3452 Weight 215 lb 9.793 oz 216 lb 14.958 oz General appearance: PRESENT: no acute distress Respiratory exam: PRESENT: wheezes - mild Cardiovascular exam: PRESENT: irregular rhythm. ABSENT: diastolic murmur, systolic murmur GI/Abdominal exam: ABSENT: mass, organolmegaly, tenderness Extremities exam: ABSENT: pedal edema Neurological exam: PRESENT: oriented to situation Psychiatric exam: PRESENT: appropriate affect Results Laboratory Results: Labs- Last Values WBC 10.1 10^3/uL (4.0-10.5) 02/02/19 12:39 RBC 5.62 10^6/uL (3.72-5.28) H 02/02/19 12:39 Hgb 15.9 g/dL (12.0-15.5) H 02/02/19 12:39 Hct 49.4 % (36.0-47.0) H 02/02/19 12:39 MCV 88 fl (80-97) 02/02/19 12:39 MCH 28.4 pg (27.0-33.4) 02/02/19 12:39 MCHC 32.3 g/dL (32.0-36.0) 02/02/19 12:39 RDW 16.7 % (11.5-14.0) H 02/02/19 12:39 Plt Count 265 10^3/uL (150-450) 02/02/19 12:39 Seg Neutrophils % 72.9 % (42-78) 02/02/19 12:39 Lymphocytes % 15.6 % (13-45) 02/02/19 12:39 Monocytes % 10.2 % (3-13) 02/02/19 12:39 Eosinophils % 0.8 % (0-6) 02/02/19 12:39 Basophils % 0.5 % (0-2) 02/02/19 12:39 Absolute Neutrophils 7.4 10^3/uL (1.7-8.2) 02/02/19 12:39 Absolute Lymphocytes 1.6 10^3/uL (0.5-4.7) 02/02/19 12:39 Absolute Monocytes 1.0 10^3/uL (0.1-1.4) 02/02/19 12:39 Absolute Eosinophils 0.1 10^3/uL (0.0-0.6) 02/02/19 12:39 Absolute Basophils 0.1 10^3/uL (0.0-0.2) 02/02/19 12:39 PT 13.2 SEC (11.4-15.4) 02/06/19 10:07 INR 0.96 02/06/19 10:07 APTT 35.3 SEC (23.5-35.8) 02/04/19 04:09 Sodium 128.5 mmol/L (137-145) L 02/09/19 10:14 Potassium 4.5 mmol/L (3.6-5.0) 02/09/19 10:14 Chloride 81 mmol/L (98-107) L 02/09/19 10:14 Carbon Dioxide 37 mmol/L (22-30) H 02/09/19 10:14 Anion Gap 11 (5-19) 02/09/19 10:14 BUN 17 mg/dL (7-20) 02/09/19 10:14 Creatinine 0.65 mg/dL (0.52-1.25) 02/09/19 10:14 Est GFR ( Amer) > 60 (>60) 02/09/19 10:14 Est GFR (Non-Af Amer) > 60 (>60) 02/09/19 10:14 Glucose 141 mg/dL (75-110) H 02/09/19 10:14 POC Glucose 117 mg/dL (70-110) H 02/09/19 16:18 Calcium 8.9 mg/dL (8.4-10.2) 02/09/19 10:14 Total Bilirubin 0.8 mg/dL (0.2-1.3) 02/02/19 12:39 Direct Bilirubin 0.3 mg/dL (0.0-0.4) 02/02/19 12:39 Neonat Total Bilirubin Not Reportable 02/02/19 12:39 Neonat Direct Bilirubin Not Reportable 02/02/19 12:39 Neonat Indirect Bili Not Reportable 02/02/19 12:39 AST 21 U/L (14-36) 02/02/19 12:39 ALT 19 U/L (9-52) 02/02/19 12:39 Alkaline Phosphatase 166 U/L (38-126) H 02/02/19 12:39 Creatine Kinase 40 U/L (30-135) 02/02/19 12:39 CK-MB (CK-2) 0.72 ng/mL (<4.55) 02/02/19 12:39 Troponin I 0.014 ng/mL 02/02/19 12:39 Total Protein 7.7 g/dL (6.3-8.2) 02/02/19 12:39 Albumin 3.9 g/dL (3.5-5.0) 02/02/19 12:39 Urine Color STRAW 02/02/19 13:18 Urine Appearance CLEAR 02/02/19 13:18 Urine pH 7.0 (5.0-9.0) 02/02/19 13:18 Ur Specific [place] 1.004 02/02/19 13:18 Urine Protein NEGATIVE mg/dL (NEGATIVE) 02/02/19 13:18 Urine Glucose (UA) NEGATIVE mg/dL (NEGATIVE) 02/02/19 13:18 Urine Ketones NEGATIVE mg/dL (NEGATIVE) 02/02/19 13:18 Urine Blood SMALL (NEGATIVE) H 02/02/19 13:18 Urine Nitrite NEGATIVE (NEGATIVE) 02/02/19 13:18 Urine Bilirubin NEGATIVE (NEGATIVE) 02/02/19 13:18 Urine Urobilinogen NEGATIVE mg/dL (<2.0) 02/02/19 13:18 Ur Leukocyte Esterase NEGATIVE (NEGATIVE) 02/02/19 13:18 Urine WBC (Auto) 1 /HPF 02/02/19 13:18 Urine RBC (Auto) 1 /HPF 02/02/19 13:18 Urine Bacteria (Auto) TRACE /HPF 02/02/19 13:18 Squamous Epi Cells Auto 1 /HPF 02/02/19 13:18 Urine Mucus (Auto) RARE /LPF 02/02/19 13:18 Urine Ascorbic Acid NEGATIVE (NEGATIVE) 02/02/19 13:18 Fluid Type PLEURAL 02/07/19 09:35 Fluid Source LUNG 02/07/19 09:35 Fluid Color YELLOW 02/07/19 09:35 Fluid Appearance HAZY 02/07/19 09:35 Fluid Viscosity LIQUID 02/07/19 09:35 Fluid WBC 2690 /uL 02/07/19 09:35 Fluid RBC 1280 /uL 02/07/19 09:35 Fluid Seg Neutrophils 9 % 02/07/19 09:35 Fluid Lymphocytes 91 % 02/07/19 09:35 Fluid Monocytes 0 % 02/07/19 09:35 Fluid Eosinophils 0 % 02/07/19 09:35 Fluid Basophils 0 % 02/07/19 09:35 AFB Smear NO ACID FAST BACILLI (NO AFB SEEN) 02/07/19 09:35 Impressions: Chest CT 02/02/19 13:54 IMPRESSION: 1. Moderate right-sided pleural effusion with compressive atelectasis of the right lower and right middle lobes. Focal, rounded consolidation involving the left lower lobe. Mediastinal lymphadenopathy. Differential considerations are broad to include both infectious and neoplastic causes. No evidence of pulmonary embolus. 2. Lobular soft tissue attenuation within the subcarinal posterior mediastinum is of uncertain etiology. However, this appears to be associated with the esophagus and may represent an esophageal diverticulum or mass. Abdomen Ultrasound 02/05/19 00:00 IMPRESSION: No ascites. No other significant finding. Thoracentesis Ultrasound 02/07/19 00:00 IMPRESSION: SUCCESSFUL PLACEMENT OF A RIGHT SIDED CHEST TUBE USING ULTRASOUND GUIDANCE. Pleural fluid specimen was sent to cytology. Abdomen X-Ray 02/08/19 00:00 IMPRESSION: Cannot exclude sigmoid volvulus. Abdomen/Pelvis CT 02/08/19 00:00 IMPRESSION: 1. No evidence of intestinal obstruction. Specifically no evidenc e of sigmoid volvulus. 2. Patchy right lower lobe airspace disease suspicious for pneumonia. Small bore right-sided chest tube without significant pleural effusion. Persistent mediastinal adenopathy. 3. Additional findings as above. KUB X-Ray 02/09/19 00:00 IMPRESSION: Nonobstructive bowel gas pattern. Right basilar airspace disease, atelectasis versus pneumonia. Right basilar pleural space pigtail catheter has been removed Chest X-Ray 02/09/19 06:00 IMPRESSION: Post removal right chest tube without pneumothorax. Persistent right middle and lower lobe consolidation atelectasis versus pneumonia. Qualifiers - * PATIENT BEING DISCHARGED WITH ANY OF THE FOLLOWING DIAGNOSIS: No Acute Heart Failure Is this a Heart Failure Patient?: No Plan Discharge Plan: [facility]
[2019-02-10 09:11] LABS: ANION GAP 9 (5-19); BLOOD UREA NITROGEN 14 mg/dL (7-20); CALCIUM 8.7 mg/dL (8.4-10.2); CARBON DIOXIDE 39 mmol/L (22-30); CHLORIDE 86 mmol/L (98-107); GLUCOSE 114 mg/dL (75-110); POTASSIUM 4.6 mmol/L (3.6-5.0); SODIUM 133.6 mmol/L (137-145)
[2019-02-10] MEDS: ALLOPURINOL 300 MG TABLET PO SCH (09:50)
[2019-02-10] MEDS: DILTIAZEM HCL 120 MG CAP.SR.24H PO SCH (09:50)
[2019-02-10] MEDS: DOCUSATE SODIUM 100 MG CAPSULE PO SCH (09:50)
[2019-02-10] MEDS: PSYLLIUM SEED-SF 5.85 GM PACKET PO SCH (09:50)
[2019-02-10] MEDS: METOPROLOL TARTRATE 25 MG TABLET PO SCH (09:50)
[2019-02-10 13:31] VITALS: BP 135/45
== END 2019-02-10 17:00 | disposition hospice, home (50) | DRG 181 ==
LOC: ER 12:18 → EH 15:40 → 5 20:10
PROVIDERS: ADMIT Family Medicine; ATTEND Family Medicine
PROC: 3E0F3GC Introduction of Other Therapeutic Substance into Respiratory Tract, Percutaneous Approach (ICD-10-PCS; 2019-02-03)
PROC: 0W9930Z Drainage of Right Pleural Cavity with Drainage Device, Percutaneous Approach (ICD-10-PCS; principal; 2019-02-07)
DX: C34.91 Malignant neoplasm of unspecified part of right bronchus or lung (principal); J90 Pleural effusion, not elsewhere classified; I50.32 Chronic diastolic (congestive) heart failure; D51.3 Other dietary vitamin B12 deficiency anemia; I48.2 Chronic atrial fibrillation; I11.0 Hypertensive heart disease with heart failure; J43.1 Panlobular emphysema; E11.9 Type 2 diabetes mellitus without complications; D50.9 Iron deficiency anemia, unspecified; E78.5 Hyperlipidemia, unspecified; J20.9 Acute bronchitis, unspecified; E66.9 Obesity, unspecified; K21.9 Gastro-esophageal reflux disease without esophagitis; M19.90 Unspecified osteoarthritis, unspecified site; L40.9 Psoriasis, unspecified; F32.9 Major depressive disorder, single episode, unspecified; M1A.09X0 Idiopathic chronic gout, multiple sites, without tophus (tophi); K59.01 Slow transit constipation; R63.4 Abnormal weight loss; Z68.35 Body mass index [BMI] 35.0-35.9, adult; Z87.891 Personal history of nicotine dependence; Z79.4 Long term (current) use of insulin; Z88.0 Allergy status to penicillin; Z88.8 Allergy status to other drugs, medicaments and biological substances; Z83.3 Family history of diabetes mellitus; Z82.49 Family history of ischemic heart disease and other diseases of the circulatory system; Z80.0 Family history of malignant neoplasm of digestive organs
CPT/HCPCS: 32557; 36415; 71045; 71046; 71260; 74018; 74019; 74177; 76705; 80048; 80053; 81001; 82550; 82553; 82962; 84484; 85025; 85610; 85730; 87015; 87040; 87070; 87075; 87101; 87116; 87205; 87206; 88305; 88313; 88341; 88342; 89050; 93005; 93010; 99285; C1769; C1887; C1894; J1815; J2405; J3490; J7512; J7620